=== PATIENT | female | born 1955 | race Caucasian/White ===

== ENCOUNTER 2017-05-02 13:06 | Emergency (ER) | payer BC ==
[2017-05-02 15:39] VITALS: BP 143/82
--- NOTE | 2017-05-02 16:27 | UC ---
Ear Complaint HPI - HPI Summary HPI Summary: ear pain facial pressure, subjective fever, fatigue - History of Current Complaint Chief Complaint: UCGeneralIllness Stated Complaint: SINUS INF,EAR/FACE PAIN Time Seen by Provider: 05/02/17 16:06 Hx Obtained From: Patient ?: No Onset/Duration: Gradual Onset, Lasting Days, Still Present, Worse Since - this weekend Severity Initially: Mild Severity Currently: Moderate Alleviating Factors: Nothing - Allergies/Home Medications Allergies/Adverse Reactions: Allergies Allergy/AdvReac Type Severity Reaction Status Date / Time Adhesive Tape Allergy Rash Verified 05/02/17 15:39 Bacitracin [From Neosporin] Allergy Itching Verified 05/02/17 15:39 Neomycin [From Neosporin] Allergy Itching Verified 05/02/17 15:39 Polymyxin B [From Neosporin] Allergy Itching Verified 05/02/17 15:39 PMH/Surg Hx/FS Hx/Imm Hx Previously Healthy: No Cardiovascular History: Hypertension - Surgical History Surgical History: Yes Surgery Procedure, Year, and Place: 2 c-sections, 1984, 1986, elijah hernia repair with gallbladder and tibal ligation CARPLE TUNNEL BILAT, 1996. sigmoidectomy, 09/2014, [facility] - Family History Known Family History: Positive: Hypertension - Social History Occupation: Employed Full-time Lives: With Family Alcohol Use: Weekly Alcohol Amount: 2 per week Substance Use Type: None Smoking Status (MU): Current Every Day Smoker Amount Used/How Often: pack a day for 10 years When Did the Patient Quit Smoking/Using Tobacco: 5 days ago Household Exposure Type: Cigarettes Review of Systems Constitutional: Fever - subjective, Chills, Fatigue Skin: Negative Eyes: Negative ENT: Sore Throat, Ear Ache, Sinus Congestion, Sinus Pain/Tenderness Respiratory: Negative Cardiovascular: Negative Gastrointestinal: Negative Genitourinary: Negative Motor: Negative Neurovascular: Negative Musculoskeletal: Negative Neurological: Headache Psychological: Negative All Other Systems Reviewed And Are Negative: Yes Physical Exam Triage Information Reviewed: Yes Appearance: Well-Appearing, No Pain Distress, Well-Nourished Vital Signs: Initial Vital Signs Pulse 80 05/02/17 15:34 Resp 18 05/02/17 15:34 BP 143/82 05/02/17 15:34 Pulse Ox 97 05/02/17 15:34 Vital Signs Reviewed: Yes Eye Exam: Normal Eyes: Positive: Conjunctiva Clear ENT Exam: Normal ENT: Positive: Normal ENT inspection, Hearing grossly normal, Pharynx normal, Nasal congestion, TMs normal. Negative: Nasal drainage, Tonsillar swelling, Tonsillar exudate, Trismus, Muffled/hoarse voice Dental Exam: Normal Neck exam: Normal Neck: Positive: Supple, Nontender, No Lymphadenopathy Respiratory Exam: Normal Respiratory: Positive: Chest non-tender, Lungs clear, Normal breath sounds, No respiratory distress, No accessory muscle use Cardiovascular Exam: Normal Cardiovascular: Positive: RRR, No Murmur, Pulses Normal, Brisk Capillary Refill Musculoskeletal Exam: Normal Musculoskeletal: Positive: Strength Intact, ROM Intact, No Edema Neurological Exam: Normal Neurological: Positive: Alert, Muscle Tone Normal Psychological Exam: Normal Skin Exam: Normal Ear Complaint Course/Dx - Course Course Of Treatment: flonase,sudafed,augmentin, increase fluids follow with pcp - Differential Dx/Diagnosis Differential Diagnosis/HQI/PQRI: Foreign Body, Otitis Externa, Otitis Media, Trigeminal Nueralgia, URI Provider Diagnoses: serrous otitis media Discharge - Discharge Plan Condition: Stable Disposition: HOME Prescriptions: Amoxicillin/Clavulanate TAB* [Augmentin TAB 875*] 875 mg PO BID #20 tab Fluticasone NASAL SPRAY 50MCG* [Flonase NASAL SPRAY 50MCG*] 2 spray BOTH NARES DAILY #1 btl Patient Education Materials: DASH Eating Plan (ED), Hypertension (ED), Serous Otitis Media (ED) Referrals: Mel Chairez MD [Primary Care Provider] - 1 Week
== END 2017-05-02 17:13 | disposition home or self-care (01) ==
LOC: UCEAST 13:06
DX: H65.90 Unspecified nonsuppurative otitis media, unspecified ear (principal); I10 Essential (primary) hypertension; Z88.3 Allergy status to other anti-infective agents; F17.210 Nicotine dependence, cigarettes, uncomplicated
CPT/HCPCS: 99211; G0463

== ENCOUNTER 2018-01-12 08:57 | Day surgery (SDC) | payer BC ==
[~2018-01-12 08:57] MED LIST: Buffered Lidocaine 0.9% SYRIN* 5 ML/SYR SYRINGE INTRADERM ONE; Famotidine IV* 10 MG/ML 2 ML (20 mg) IV ONE
[2018-01-12] MEDS ORDERED: ceFAZolin 2 GM PREMIX (*) 2 GM/50 ML BAG IVPB ONE (09:20)
[2018-01-12] MEDS ORDERED: Famotidine IV* 10 MG/ML 2 ML (20 mg) ONE (09:24)
[2018-01-12] MEDS ORDERED: fentaNYL* 50 MCG/ML 2 ML VIAL (100 MCG VIAL) ONE (09:40)
[2018-01-12] MEDS ORDERED: Midazolam* 1 MG/ML 5 ML VIAL (5 MG) ONE (09:40)
[2018-01-12] MEDS ORDERED: Bupivacaine 0.5% SDV PF* 10-30ML VIAL ONE (10:12)
[2018-01-12] MEDS ORDERED: Lidocaine 1% INJ* 10 MG/ML 30 ML SDV ONE (10:12)
[2018-01-12] MEDS ORDERED: Ondansetron INJ* 2 MG/ML VIAL ONE (10:54)
[2018-01-12] MEDS ORDERED: Propofol* 10 MG/ML 20 ML BTL IV PUSH ONE ×2 (10:54→11:14)
[2018-01-12] MEDS ORDERED: Ketorolac INJ* 30 MG/ML 1 ML VIAL ONE (10:54)
[2018-01-12] MEDS ORDERED: Lidocaine 2% PF * 5 ML VIAL ONE (10:54)
[2018-01-12] MEDS ORDERED: Dexamethasone IV* 4 MG/ML 1 ML (4 MG) ONE ×2 (11:11→11:15)
[2018-01-12] MEDS ORDERED: Acetaminophen TAB* 325 MG PO PRN (11:30)
[2018-01-12] MEDS ORDERED: Naloxone* 0.4 MG/ML 1 ML VIAL IV PRN (11:30)
[2018-01-12] MEDS ORDERED: DiMENhydriNATE IV* 50 MG/ML VIAL IV PUSH PRN (11:30)
[2018-01-12 11:49] VITALS: BP 127/75
--- NOTE | 2018-01-13 01:32 | OP ---
DATE OF OPERATION: 01/12/18 - [facility] DATE OF : 55 SURGEON: Jayson Luu DPM ANESTHESIA: MAC with local. PRE-OP DIAGNOSIS: Painful screw hardware x2 in the first metatarsal of the left foot. POST-OP DIAGNOSIS: Painful screw hardware x2 in the first metatarsal of the left foot. OPERATIVE PROCEDURE: Removal of two screws from the first metatarsal, left foot. PATHOLOGY: The removed hardware. HEMOSTASIS: Pneumatic ankle tourniquet. ESTIMATED BLOOD LOSS: Less than 10 cc. INDICATIONS: The patient with prior bunionectomy with his metatarsal osteotomy with screw fixation. The osteotomy is well healed. More recently, she developed some irritation around the screw head causing some neuritis and pain when wearing shoes. She opts for surgery at this time to remove the two screws from the first metatarsal. DESCRIPTION OF PROCEDURE: The patient was brought to the operating room, placed on the operating room table in supine position. The anesthesia department administered IV sedation and peripheral nerve blocks performed about the left forefoot with a 1:1 mixture of 1% lidocaine plain and 0.5% Marcaine plain. Left foot was then prepped and draped in the usual fashion. Next, an Esmarch bandage was utilized to exsanguinate the left foot and pneumatic ankle tourniquet was inflated to 250 mmHg above a well-padded left ankle. Attention was directed to the dorsal aspect of the first metatarsal where the C-arm was used previously to zayda the screw heads. Using the previous surgical incision, a linear incision was made. The incision was deepened to subcutaneous tissues with care being taken to retract neurovascular structures and cauterize superficial bleeders as needed. Dissection was carried down to the fascia with more proximal screws identified. The periosteal tissues were incised and soft tissue and small amount of bony overgrowth was freed from the screw head and using the ERNex screw lumber driver, the screw was retrograded out of the first metatarsal. The area was inspected. There was no significant bony hypertrophy in this area. Dissection was carried further distally identifying the more distal screw. The periosteum was incised and the fibers and soft tissue as well as some bony overgrowth was removed from the margins of the screw head and using the screw lumber driver, screw was retrograded out of the first metatarsal. Both screws were found to be intact. No signs of breakage or shearing. Again, both areas were inspected with no bony hypertrophy warranting any rasping. The surgical site was flushed with copious amounts of normal sterile saline. The periosteum was reapproximated and secured with 4-0 Vicryl, subcutaneous tissues were reapproximated with 4-0 Vicryl and the skin was reapproximated with 5-0 nylon. Dexamethasone phosphate was infiltrated about the surgical sites and the incisions were dressed with Xeroform gauze and a light sterile compressive dressing consisting of 4x4 gauze, Rudy, and light Coban wrap. The pneumatic ankle tourniquet was deflated about the left ankle and a prompt hyperemic response was noted in about all 5 digits of the patient's left foot. Having appeared to tolerate the procedures and anesthesia well, the patient was transported via cart from the operating room to Recovery in satisfactory condition with cap refill less than 3 seconds to all digits of the left foot. [id number]/CPS #: [id number] MTDD
== END 2018-01-12 12:07 | disposition home or self-care (01) ==
LOC: OREAST 08:57
PROVIDERS: ATTEND Podiatrist Foot Surgery
DX: T84.84XA Pain due to internal orthopedic prosthetic devices, implants and grafts, initial encounter (principal); I10 Essential (primary) hypertension; E78.00 Pure hypercholesterolemia, unspecified; K21.9 Gastro-esophageal reflux disease without esophagitis; E78.5 Hyperlipidemia, unspecified; R06.02 Shortness of breath; F17.210 Nicotine dependence, cigarettes, uncomplicated; Z88.8 Allergy status to other drugs, medicaments and biological substances
CPT/HCPCS: 88300; J0690; J1100; J1885; J2250; J2405; J2704; J3010

== ENCOUNTER 2018-04-06 15:11 | Inpatient (IN) | payer BC ==
[2018-04-06] MEDS ORDERED: cefTRIAXone(*) 1 GM in NS 0.9% 50 ML* 50 ML IVPB ONE (15:29)
[2018-04-06] MEDS ORDERED: NS 0.9% 1000 ML* 2,000 ML IV ONE (15:29)
[2018-04-06 15:49] LABS: ABS Basophils 0.1 10^3/ul (0-0.2); ABS Eosinophils 0 10^3/ul (0-0.6); ABS Lymphocytes 0.9 10^3/ul (1.0-4.8); ABS Monocytes 0.5 10^3/ul (0-0.8); ABS Neutrophils 6.1 10^3/ul (1.5-7.7); ABS Nucleated RBC 0 10^3/ul; Eosinophil % 0 % (0-6); Hematocrit 41 % (35-47); Hemoglobin 13.6 g/dl (12.0-16.0); Lymphocyte % 11.9 % (25-47); Mean Corpuscular HGB Conc 34 g/dl (31-36); Mean Corpuscular Hemoglobin 28 pg (27-31); Mean Corpuscular Volume 83 fL (80-97); Nucleated Red Blood Cells % 0.2; Platelet Count 167 10^3/ul (150-450); Red Blood Count 4.87 10^6/ul (4.00-5.40); Red Cell Distribution Width 15 % (10.5-15); White Blood Count 7.5 10^3/ul (3.5-10.8)
[2018-04-06 16:19] LABS: Urine Appearance Cloudy; Urine Blood 2+ (Negative); Urine Color Yellow; Urine Ketones Negative (Negative); Urine Protein 2+(100 mg/dL) (Negative); Urine Red Blood Cell 2+(6-10/hpf) (Absent); Urine Specific Gravity 1.017 (1.010-1.030); Urine Urobilinogen Negative (Negative); Urine White Blood Cell Absent (Absent)
--- NOTE | 2018-04-06 16:31 | RAD ---
INDICATION: Fever. COMPARISON: Comparison is made with a prior chest x-ray study from May 18, 2016. TECHNIQUE: A portable view of the chest was obtained. FINDINGS: Cardiac and mediastinal contours appear to be within normal limits. The lungs are clear. No pleural effusion is seen. IMPRESSION: NO EVIDENCE FOR ACUTE DISEASE.
[2018-04-06] MEDS ORDERED: Aspirin 81 mg CHEW TAB* 81 MG TAB.CHEW PO ONE (16:35)
--- NOTE | 2018-04-06 16:44 | RAD ---
INDICATION: Headache. COMPARISON: Comparison is made with a prior MRI of the brain from October 28, 2006. TECHNIQUE: Contiguous axial sections of the brain were obtained from the skull base to the vertex without contrast. FINDINGS: There is a cavum septum pellucidum consistent with normal variation. The ventricle cisterns and sulci are otherwise unremarkable. No significant focal abnormality or mass effect is seen. There is no evidence for hemorrhage. No significant focal osseous abnormality is seen. The visualized portion of the paranasal sinuses and mastoid air cells appear clear. IMPRESSION: NO EVIDENCE FOR ACUTE INTRACRANIAL ABNORMALITY.
[2018-04-06 16:55] LABS: INR 1.1 (0.77-1.02)
[2018-04-06] MEDS ORDERED: Ketorolac INJ* 30 MG/ML 1 ML VIAL IV PUSH ONE (17:12)
--- NOTE | 2018-04-06 18:19 | ED ---
Romero Cooper Stephanie, scribed for Rayray Thorpe MD on 04/06/18 at 1535 . HPI Febrile Illness - HPI Summary HPI Summary: The pt is a 62 y/o F presenting to the ED with c/o fever that began on 04/03/18. Symptoms include chills and diaphoresis. She denies dysuria, neck pain and photophobia. The pt reports she usually has a cough with phlegm due to being a smoker. - History of Current Complaint Chief Complaint: EDFever Time Seen by Provider: 04/06/18 15:23 Hx Obtained From: Patient Onset/Duration: Started Days Ago - 2, Still Present Timing: Constant Current Severity: Moderate Pain Intensity: 0 Pain Scale Used: 0-10 Numeric Aggravating Factors: Nothing Alleviating Factors: Nothing Associated Signs and Symptoms: Chills, Cough - chronic, Diaphoresis - Allergy/Home Medications Allergies/Adverse Reactions: Allergies Allergy/AdvReac Type Severity Reaction Status Date / Time Adhesive Tape Allergy Rash Verified 01/12/18 09:27 bacitracin Allergy Itching Verified 01/12/18 09:27 [From Neosporin ([id number])] neomycin Allergy Itching Verified 01/12/18 09:27 [From Neosporin ([id number])] polymyxin B Allergy Itching Verified 01/12/18 09:27 [From Neosporin ([id number])] Home Medications: Home Medications Lisinopril TAB* [Prinivil TAB*] 40 mg PO DAILY 04/06/18 [History Confirmed 04/06] Tiotropium CAP.INH* [Spiriva CAP.INH*] 1 cap.inh INH DAILY 04/06/18 [History Confirmed 04/06/18] amLODIPine TAB* [Norvasc 5 mg TAB*] 5 mg PO DAILY 04/06/18 [History Confirmed ] PMH/Surg Hx/FS Hx/Imm Hx Endocrine/Hematology History: Denies: Hx Diabetes, Hx Thyroid Disease Cardiovascular History: Reports: Hx Hypertension - ON MEDICATION FOR Denies: Hx Congestive Heart Failure, Hx Pacemaker/ICD, Other Cardiovascular Problems/Disorders Respiratory History: Denies: Hx Asthma, Hx Chronic Obstructive Pulmonary Disease (COPD), Other Respiratory Problems/Disorders GI History: Reports: Hx Gastroesophageal Reflux Disease - OCCASIONALLY-PRN PREVACID, Other GI Disorders - HX OF DIVERTICULITIS Denies: Hx Ulcer Musculoskeletal History: Reports: Hx Arthritis - thumbs and shoulders and hip Sensory History: Reports: Hx Contacts or Glasses - reading glasses Denies: Hx Hearing Aid Opthamlomology History: Reports: Hx Contacts or Glasses - reading glasses Neurological History: Denies: Other Neuro Impairments/Disorders - Surgical History Surgery Procedure, Year, and Place: 2 c-sections, 1984, 1986, elijah hernia repair with gallbladder and tibal ligation CARPLE TUNNEL BILAT, 1996. sigmoidectomy, 09/2014, [facility]. 2017-COLPOSCOPY AND LOOP BIOPSY. 2004- BUNIONECTOMY LEFT FOOT Hx Anesthesia Reactions: Yes - SIGMOIDECTOMY-NAUSEA AND VOMITING Infectious Disease History: No Infectious Disease History: Denies: Hx Clostridium Difficile, Hx Hepatitis, Hx Human Immunodeficiency Virus (HIV), Hx Shingles, Hx Tuberculosis, Hx Known/Suspected VRE, Hx Known/ Suspected VRSA, History Other Infectious Disease, Traveled Outside the [place] in Last 30 Days - Family History Known Family History: Positive: Hypertension - Social History Occupation: Employed Part-time Lives: With Family Alcohol Use: Weekly Alcohol Amount: 2 per week Hx Substance Use: No Substance Use Type: Reports: None Hx Tobacco Use: Yes Smoking Status (MU): Heavy Every Day Tobacco Smoker Amount Used/How Often: 1 PPD X 14 YEARS AGO Review of Systems Positive: Fever, Chills, Skin Diaphoresis Negative: Photophobia Negative: dysuria Musculoskeletal: Negative - neck pain Negative: Slurred Speech All Other Systems Reviewed And Are Negative: Yes Physical Exam - Summary Physical Exam Summary: VITAL SIGNS: Reviewed. GENERAL: Patient is a well-developed and nourished FEMALE who is lying comfortable in the stretcher. Patient is not in any acute respiratory distress. HEAD AND FACE: No signs of trauma. No ecchymosis, hematomas or skull depressions. No sinus tenderness. EYES: PERRLA, EOMI x 2, No injected conjunctiva, no nystagmus. EARS: Hearing grossly intact. Ear canals and tympanic membranes are within normal limits. MOUTH: Oropharynx within normal limits. NECK: Supple, trachea is midline, no adenopathy, no JVD, no carotid bruit, no c- spine tenderness, neck with full ROM. CHEST: Symmetric, no tenderness at palpation LUNGS: Crackles in bases of lungs CVS: Regular rate and rhythm, S1 and S2 present, no murmurs or gallops appreciated. ABDOMEN: Soft, non-tender. No signs of distention. No rebound no guarding, and no masses palpated. Bowel sounds are normal. EXTREMITIES: FROM in all major joints, no edema, no cyanosis or clubbing. NEURO: Alert and oriented x 3. No acute neurological deficits. Speech is normal and follows commands. SKIN: Dry and warm Triage Information Reviewed: Yes Vital Signs On Initial Exam: Initial Vitals Temp Pulse Resp BP Pulse Ox 102.8 F 96 22 108/68 94 04/06/18 15:11 04/06/18 15:11 04/06/18 15:11 04/06/18 15:11 04/06/18 15:11 Vital Signs Reviewed: Yes Diagnostics - Vital Signs Vital Signs Temp Pulse Resp BP Pulse Ox 04/06/18 15:11 102.8 F 96 22 108/68 94 - Laboratory Lab Results: Lab Results 04/06/18 04/06/18 04/06/18 Range/Units 15:34 15:34 15:34 WBC 7.5 (3.5-10.8) 10^3/ul RBC 4.87 (4.00-5.40) 10^6/ul Hgb 13.6 (12.0-16.0) g/dl Hct 41 (35-47) % MCV 83 (80-97) fL MCH 28 (27-31) pg MCHC 34 (31-36) g/dl RDW 15 (10.5-15) % Plt Count 167 (150-450) 10^3/ul MPV 10.0 (7.4-10.4) um3 Neut % (Auto) 81.0 (38-83) % Lymph % (Auto) 11.9 L (25-47) % [place] % (Auto) 6.4 (0-7) % Eos % (Auto) 0 (0-6) % Baso % (Auto) 0.7 (0-2) % Absolute Neuts (auto) 6.1 (1.5-7.7) 10^3/ul Absolute Lymphs (auto) 0.9 L (1.0-4.8) 10^3/ul Absolute Monos (auto) 0.5 (0-0.8) 10^3/ul Absolute Eos (auto) 0 (0-0.6) 10^3/ul Absolute Basos (auto) 0.1 (0-0.2) 10^3/ul Absolute Nucleated RBC 0 10^3/ul Nucleated RBC % 0.2 ESR Pending INR (Anticoag Therapy) 1.10 H (0.77-1.02) APTT 30.0 (26.0-36.3) seconds Fibrinogen 441.6 H (110.8-404.3) mg/dL Sodium (135-145) mmol/L Potassium (3.5-5.0) mmol/L Chloride (101-111) mmol/L Carbon Dioxide (22-32) mmol/L Anion Gap (2-11) mmol/L BUN (6-24) mg/dL Creatinine (0.51-0.95) mg/dL Est GFR ( Amer) (>60) Est GFR (Non-Af Amer) (>60) BUN/Creatinine Ratio (8-20) Glucose (70-100) mg/dL Lactic Acid (0.5-2.0) mmol/L Calcium (8.6-10.3) mg/dL Total Bilirubin (0.2-1.0) mg/dL AST (13-39) U/L ALT (7-52) U/L Alkaline Phosphatase (34-104) U/L Total Creatine Kinase (10-223) U/L Troponin I (<0.04) ng/mL C-Reactive Protein (< 5.00) mg/L B-Natriuretic Peptide ( - 100) pg/mL Total Protein (6.4-8.9) g/dL Albumin (3.2-5.2) g/dL Globulin (2-4) g/dL Albumin/Globulin Ratio (1-3) Procalcitonin (<0.6) ng/mL Urine Color Yellow Urine Appearance Cloudy Urine pH 5.0 (5-9) Ur Specific [place] 1.017 (1.010-1.030) Urine Protein 2+(100 mg/dl) A (Negative) Urine Ketones Negative (Negative) Urine Blood 2+ A (Negative) Urine Nitrate Negative (Negative) Urine Bilirubin Negative (Negative) Urine Urobilinogen Negative (Negative) Ur Leukocyte Esterase Negative (Negative) Urine WBC (Auto) Absent (Absent) Urine RBC (Auto) 2+(6-10/hpf) A (Absent) Ur Squamous Epith Cells Present A (Absent) Urine Bacteria Absent (Absent) Urine Glucose Negative (Negative) Influenza A (Rapid) (Negative) Influenza B (Rapid) (Negative) 04/06/18 04/06/18 04/06/18 Range/Units 15:34 15:34 15:34 WBC (3.5-10.8) 10^3/ul RBC (4.00-5.40) 10^6/ul Hgb (12.0-16.0) g/dl Hct (35-47) % MCV (80-97) fL MCH (27-31) pg MCHC (31-36) g/dl RDW (10.5-15) % Plt Count (150-450) 10^3/ul MPV (7.4-10.4) um3 Neut % (Auto) (38-83) % Lymph % (Auto) (25-47) % [place] % (Auto) (0-7) % Eos % (Auto) (0-6) % Baso % (Auto) (0-2) % Absolute Neuts (auto) (1.5-7.7) 10^3/ul Absolute Lymphs (auto) (1.0-4.8) 10^3/ul Absolute Monos (auto) (0-0.8) 10^3/ul Absolute Eos (auto) (0-0.6) 10^3/ul Absolute Basos (auto) (0-0.2) 10^3/ul Absolute Nucleated RBC 10^3/ul Nucleated RBC % ESR INR (Anticoag Therapy) (0.77-1.02) APTT (26.0-36.3) seconds Fibrinogen (110.8-404.3) mg/dL Sodium 136 (135-145) mmol/L Potassium 3.8 (3.5-5.0) mmol/L Chloride 102 (101-111) mmol/L Carbon Dioxide 24 (22-32) mmol/L Anion Gap 10 (2-11) mmol/L BUN 10 (6-24) mg/dL Creatinine 0.87 (0.51-0.95) mg/dL Est GFR ( Amer) 84.8 (>60) Est GFR (Non-Af Amer) 66.0 (>60) BUN/Creatinine Ratio 11.5 (8-20) Glucose 116 H (70-100) mg/dL Lactic Acid 0.7 (0.5-2.0) mmol/L Calcium 9.2 (8.6-10.3) mg/dL Total Bilirubin 0.50 (0.2-1.0) mg/dL AST 33 (13-39) U/L ALT 35 (7-52) U/L Alkaline Phosphatase 82 (34-104) U/L Total Creatine Kinase 62 (10-223) U/L Troponin I 0.36 H* (<0.04) ng/mL C-Reactive Protein 112.50 H (< 5.00) mg/L B-Natriuretic Peptide 44 ( - 100) pg/mL Total Protein 6.8 (6.4-8.9) g/dL Albumin 3.9 (3.2-5.2) g/dL Globulin 2.9 (2-4) g/dL Albumin/Globulin Ratio 1.3 (1-3) Procalcitonin (<0.6) ng/mL Urine Color Urine Appearance Urine pH (5-9) Ur Specific [place] (1.010-1.030) Urine Protein (Negative) Urine Ketones (Negative) Urine Blood (Negative) Urine Nitrate (Negative) Urine Bilirubin (Negative) Urine Urobilinogen (Negative) Ur Leukocyte Esterase (Negative) Urine WBC (Auto) (Absent) Urine RBC (Auto) (Absent) Ur Squamous Epith Cells (Absent) Urine Bacteria (Absent) Urine Glucose (Negative) Influenza A (Rapid) (Negative) Influenza B (Rapid) (Negative) 04/06/18 04/06/18 Range/Units 15:34 15:55 WBC (3.5-10.8) 10^3/ul RBC (4.00-5.40) 10^6/ul Hgb (12.0-16.0) g/dl Hct (35-47) % MCV (80-97) fL MCH (27-31) pg MCHC (31-36) g/dl RDW (10.5-15) % Plt Count (150-450) 10^3/ul MPV (7.4-10.4) um3 Neut % (Auto) (38-83) % Lymph % (Auto) (25-47) % [place] % (Auto) (0-7) % Eos % (Auto) (0-6) % Baso % (Auto) (0-2) % Absolute Neuts (auto) (1.5-7.7) 10^3/ul Absolute Lymphs (auto) (1.0-4.8) 10^3/ul Absolute Monos (auto) (0-0.8) 10^3/ul Absolute Eos (auto) (0-0.6) 10^3/ul Absolute Basos (auto) (0-0.2) 10^3/ul Absolute Nucleated RBC 10^3/ul Nucleated RBC % ESR INR (Anticoag Therapy) (0.77-1.02) APTT (26.0-36.3) seconds Fibrinogen (110.8-404.3) mg/dL Sodium (135-145) mmol/L Potassium (3.5-5.0) mmol/L Chloride (101-111) mmol/L Carbon Dioxide (22-32) mmol/L Anion Gap (2-11) mmol/L BUN (6-24) mg/dL Creatinine (0.51-0.95) mg/dL Est GFR ( Amer) (>60) Est GFR (Non-Af Amer) (>60) BUN/Creatinine Ratio (8-20) Glucose (70-100) mg/dL Lactic Acid (0.5-2.0) mmol/L Calcium (8.6-10.3) mg/dL Total Bilirubin (0.2-1.0) mg/dL AST (13-39) U/L ALT (7-52) U/L Alkaline Phosphatase (34-104) U/L Total Creatine Kinase (10-223) U/L Troponin I (<0.04) ng/mL C-Reactive Protein (< 5.00) mg/L B-Natriuretic Peptide ( - 100) pg/mL Total Protein (6.4-8.9) g/dL Albumin (3.2-5.2) g/dL Globulin (2-4) g/dL Albumin/Globulin Ratio (1-3) Procalcitonin 0.2 (<0.6) ng/mL Urine Color Urine Appearance Urine pH (5-9) Ur Specific [place] (1.010-1.030) Urine Protein (Negative) Urine Ketones (Negative) Urine Blood (Negative) Urine Nitrate (Negative) Urine Bilirubin (Negative) Urine Urobilinogen (Negative) Ur Leukocyte Esterase (Negative) Urine WBC (Auto) (Absent) Urine RBC (Auto) (Absent) Ur Squamous Epith Cells (Absent) Urine Bacteria (Absent) Urine Glucose (Negative) Influenza A (Rapid) Negative (Negative) Influenza B (Rapid) Negative (Negative) Result Diagrams: 04/06/18 15:34 04/06/18 15:34 Lab Statement: Any lab studies that have been ordered have been reviewed, and results considered in the medical decision making process. - Radiology CXR Xray Interpretation: No Acute Changes Radiology Interpretation Completed By: Radiologist - NO EVIDENCE FOR ACUTE DISEASE. ED physician has reviewed this report. - CT Brain CT Interpretation: No Acute Changes CT Interpretation Completed By: Radiologist - NO EVIDENCE FOR ACUTE INTRACRANIAL ABNORMALITY. ED physician has reviewed this report. - EKG 15:39 Cardiac Rate: NL EKG Rhythm: Sinus Rhythm - [address] Segment: Normal EKG Interpretation: no ST elevations Re-Evaluation - Re-Evaluation First Eval Re-Evaluation Time: 18:08 Change: Improved - The pt states she feels better. ED physician discussed plan of admission with the pt and the pt understands and agrees. Course/Dx - Course Assessment/Plan: Blood test results without any significant abnormality except for fibrinogen of 441.6 and troponin was 0.36. His CRP is 112. Urinalysis is negative for UTI and [place] influenza A and B is negative. Chest x-ray shows no acute pathology. Head CT is negative for acute pathology. In the course the patient was given IV fluids, and Rocephin as opposed spectrum antibiotics and the patient was flagged positive for SIRS. Because of increased when the patient was given aspirin. The patient denies any chest pain denies any headache denies any other complaint. I discuss my physical exam, findings and test results with Dr. Erazo from the hospitalist services and he agrees to admit patient to his services. Patient is hemodynamically stable alert and oriented x 3. - Diagnoses Provider Diagnoses: Elevated troponin, Fever - Provider Notifications Discussed Care Of Patient With: Ta Erazo Time Discussed With Above Provider: 17:54 Instructed by Provider To: Admit As Inpatient Discharge - Sign-Out/Discharge Documenting (check all that apply): Discharge/Admit/Transfer - Admit - Discharge Plan Condition: Stable Disposition: ADMITTED TO [facility] Referrals: Mel Chairez MD [Primary Care Provider] - - Billing Disposition and Condition Condition: STABLE Disposition: Admitted to [facility] The documentation as recorded by the Romero iraheta Stephanie accurately reflects the service I personally performed and the decisions made by Maurilio avilez Walter, MD.
--- NOTE | 2018-04-06 21:18 | HP ---
CC: Dr. Mel Chairez* HISTORY AND PHYSICAL: DATE OF ADMISSION: 04/06/18 PRIMARY CARE PROVIDER: Dr. Mel Chairez. ATTENDING PHYSICIAN: Dr. Ta Erazo * (dictated by Sherrie Carpenter NP). CHIEF COMPLAINT: Fevers and chills with associated body aches. HISTORY OF PRESENT ILLNESS: Ms. Cervantes is a 62-year-old female with past medical history significant for GERD, hyperlipidemia, degenerative joint disease , chronic sinusitis, diverticulosis, hypertension, history of persistent vertigo who states that she has been having flu-like symptoms since Tuesday. The patient reports fevers and chills with associated body aches since Tuesday. She denies any chest pain. She occasionally has a cough, but it contributes this to her smoking history. She denies any shortness of breath. She had some vomiting this morning. She denies diarrhea, abdominal pain, dysuria, urinary urgency or frequency. She denies sore throat. She denies any sick contacts. She reports always having postnasal drip and sinus congestion and reports this is at her baseline and denies any sinus pain. She reports a poor appetite, but has been drinking fluids and eating toast. Due to her persistent fever, she presented to her primary care office for revaluation. At home today, she had a fever of 102.4 and at her PCP's office her temperature was 105. They gave her acetaminophen and called EMS. Upon recheck at EMS arrival, her temperature was 104.1. The patient was brought to the emergency room. While in the emergency room, her initial temperature was 102.8 after she received no further medications for her fever and her fever resolved after a dose of IV Toradol and her temperature was 98.9. She also had labs drawn with no leukocytosis. Troponin was 0.36, CRP 112.5, procalcitonin 0.2. She was influenza A and B negative. She had a urinalysis that was positive for protein 2+, blood 2+, rbc's 2+, squamous epithelial cells present. She had an EKG showing a normal sinus rhythm. No acute ischemia. She had a chest x-ray without acute findings. A brain CT without acute findings. She received Toradol 2 L of normal saline. The hospitalists were asked to evaluate the patient for admission. PAST MEDICAL HISTORY: 1. GERD. 2. Hyperlipidemia. 3. Degenerative joint disease. 4. Chronic sinusitis. 5. Diverticulosis. 6. Hypertension. 7. History of persistent vertigo. PAST SURGICAL HISTORY: 1. Status post section x2. 2. Status post cholecystectomy. 3. Status post tubal ligation. 4. Status post hernia repair. 5. Status post sigmoidectomy. 6. Status post bilateral carpal tunnel release. 7. Status post foot surgery. HOME MEDICATIONS: Include: 1. Spiriva 1 capsule inhalation daily. 2. Flonase 2 sprays to both nares daily. 3. Ibuprofen 600 to 800 mg oral daily as needed for fever or pain. 4. Lisinopril 40 mg oral daily. 5. Amlodipine 5 mg oral daily. ALLERGIES: ADHESIVE TAPE, NEOSPORIN, and CRESTOR. FAMILY HISTORY: The patient's mother and father and maternal family have a history of coronary artery disease. The patient's paternal grandmother had a history of diabetes. She denies any family history of cancer. The patient is a current 1-pack a day smoker. She has a total of approximately a 30 year smoking history. She did have a period of time that she had quit and has been smoking again for at least 10 years. She occasionally drinks alcohol. Denies recreational drugs. Her daughter Katelyn Cervantes will be her surrogate decision maker in the event she is unable to make decisions for herself. REVIEW OF SYSTEMS: I performed an 11-point review of systems, all the pertinent positives and negatives are mentioned in the history of present illness. The remaining review of systems are negative. PHYSICAL EXAMINATION GENERAL APPEARANCE: The patient is alert, pleasant, and appears to be in no acute distress. VITAL SIGNS: Temperature 98.9, heart rate 84, respiratory rate 14, O2 sat 95% on room air, blood pressure 142/73. HEENT: Normocephalic, atraumatic. Pupils are equal and reactive to light. Extraocular movements are intact. RESPIRATORY: There is no accessory muscle use. The lungs are clear to auscultation bilaterally. CARDIOVASCULAR: Regular rate and rhythm. S1 and S2 present. There are no murmurs, rubs, or gallops heard. ABDOMEN: Soft, nontender, and nondistended. There are bowel sounds present x4. EXTREMITIES: There is no lower extremity edema. DP and PT pulses are 2+ and symmetric. MUSCULOSKELETAL: There is no clubbing or cyanosis noted. The patient exhibits good strength in all extremities. NEUROLOGICAL: The patient is alert and oriented x4. Cranial nerves II through XII are grossly intact. PSYCHOLOGICAL: The patient is calm and cooperative. SKIN: There are no rashes or abnormalities seen. DIAGNOSTIC STUDIES/LAB DATA: Sodium 136, potassium 3.8, chloride 102, CO2 24, BUN 10, creatinine 0.87, glucose 116. White blood cell count 7.5, hemoglobin 13.6, hematocrit 41, and platelet count 167. Troponin 0.36, CRP 112.5, procalcitonin 0.2. Influenza A and B negative. Urinalysis significant for protein 2+, blood 2+, rbc's 2+, squamous epithelial cells present. EKG shows a sinus rhythm and a rate of 89. There is slight ST depression in lead V4. There are no acute signs of ischemia. This EKG is similar to previous from 05/18/16 and 03/31/11. Chest x-ray from today. Radiologist's impression: No evidence for acute disease. Brain CT from today. Radiologist's impression: No evidence for acute intracranial abnormality. IMPRESSION: Ms. Cervantes is a 62-year-old female with past medical history significant for gastroesophageal reflux disease, hyperlipidemia, degenerative joint disease, chronic sinusitis, diverticulosis, status post sigmoidectomy, hypertension and persistent vertigo, who presents to the emergency room from her primary care provider's office with fever. She will be admitted as an inpatient for fever and elevated troponin. ASSESSMENT/PLAN: 1. Fever. The patient's fever has resolved with IV Toradol. I suspect this is likely viral in nature. She is influenza negative. Her urinalysis is unremarkable. Her chest x-ray shows no acute process. She has no leukocytosis. She does have a CRP of 112.5. No rashes seen. She did receive a dose of ceftriaxone in the emergency room and had blood cultures drawn. For now , I am going to hold on any further antibiotics to give her IV fluids. I suspect this is likely viral in nature and represents a viral syndrome. She is meeting SIRS criteria with fever and tachypnea. 2. Elevated troponin. The patient denies any chest pain. Her initial troponin is 0.36. She is due now for repeat troponin. If her troponin continues to be elevated, I will call Cardiology for consult, plan for transthoracic echocardiogram in the morning and also continue to trend her troponins. Recheck an EKG in the morning. Monitor her on telemetry. She has a NADEEM score of 2 and the differential diagnosis for this could include a viral myocarditis. We will check fasting lipids in the morning. I will continue her on aspirin. I suspect her elevated troponin is secondary to demand ischemia. 3. Hypertension. The patient is currently normotensive. We will continue her on her home lisinopril and amlodipine. 4. Hyperlipidemia. The patient is not currently on a statin. We will check fasting lipids in the morning and if needed start her on medication. 5. Fluids, electrolytes, and nutrition. The patient will be on a heart- healthy diet. 6. Code status. Full code. 7. DVT prophylaxis. The patient is at high risk. She will be placed on subcu heparin. 8. Disposition. Inpatient. TIME SPENT: Time for this admission was approximately 60 minutes, greater than half of that was spent [id number] with the patient, discussing medications, past medical history, the events leading up to her arrival today, performing a physical examination. The case has been reviewed with the attending, Dr. Erazo, who agrees with the plan of care. Reviewed by DELFINA VILLEDA 04/27/18 1424 [id number]/[facility] #: [id number] RUBÉN
[2018-04-06] MEDS: Heparin VIAL(*) 5000 UNITS/ML VIAL (FIVE THOUSAND) SUBCUT SCH (22:07)
[2018-04-06] MEDS: NS 0.9% 1000 ML* 1,000 ML IV SCH (22:08)
[2018-04-06] MEDS: Acetaminophen TAB* 325 MG PO PRN (23:42)
[2018-04-07 05:36] LABS: Hematocrit 38 % (35-47); Hemoglobin 12.4 g/dl (12.0-16.0); Mean Corpuscular HGB Conc 33 g/dl (31-36); Mean Corpuscular Hemoglobin 28 pg (27-31); Mean Corpuscular Volume 84 fL (80-97); Mean Platelet Volume 9.8 um3 (7.4-10.4); Platelet Count 143 10^3/ul (150-450); Red Blood Count 4.49 10^6/ul (4.00-5.40); Red Cell Distribution Width 15 % (10.5-15); White Blood Count 6.3 10^3/ul (3.5-10.8)
[2018-04-07 05:37] LABS: ABS Basophils 0 10^3/ul (0-0.2); ABS Eosinophils 0 10^3/ul (0-0.6); ABS Lymphocytes 0.8 10^3/ul (1.0-4.8); ABS Monocytes 0.6 10^3/ul (0-0.8); ABS Neutrophils 4.9 10^3/ul (1.5-7.7); ABS Nucleated RBC 0 10^3/ul
[2018-04-07] MEDS: Heparin VIAL(*) 5000 UNITS/ML VIAL (FIVE THOUSAND) SUBCUT SCH ×3 (05:45→21:02)
[2018-04-07] MEDS: Acetaminophen TAB* 325 MG PO PRN (05:45)
[2018-04-07 06:06] LABS: ABS Basophils 0 10^3/ul (0-0.2); ABS Neutrophils 3.5 10^3/ul (1.5-7.7); Monocytes % 11 % (0-7)
[2018-04-07] MEDS ORDERED: Levofloxacin 750 MG IVPREMIX(* 750 MG/150 ML BAG IVPB SCH (08:00)
[2018-04-07] MEDS: Tiotropium CAP.INH* CAP.INH/18 MCG (USE ORDER SET !) INH SCH (08:40)
[2018-04-07] MEDS ORDERED: Tiotropium CAP.INH* CAP.INH/18 MCG (USE ORDER SET !) INH SCH (09:00)
[2018-04-07] MEDS ORDERED: Spiriva Inhaler DEVICE* 1 EACH DEVICE INH ONE (09:00)
[2018-04-07] MEDS: Aspirin EC TAB* 81 MG TAB.EC PO SCH (09:01)
[2018-04-07] MEDS: amLODIPine TAB* 5 MG PO SCH (09:01)
[2018-04-07] MEDS: Lisinopril TAB* 10 MG PO SCH (09:01)
--- NOTE | 2018-04-07 10:33 | ECHO ---
Amended Report Patient: AGNES LYNCH [facility] Rec#: [id number] : 1955 Date: 04/07/2018 Age: 62y Height: 162.6 cm / 64.0 in Weight: 103.4 kg / 227.9 lbs Sex: F BSA: 2.1 Room#: [facility] Admit Date#: 04/06/2018 Type: Inpatient Referring: Sherrie Butler NP Reading: Aleksandr Sharma MD Mill Tender Second Operator: Gloria Her RN RDCS Mill Tender Second Operator: USR CC: Mel Chairez MD Transthoracic Echocardiogram Indication: Elevated troponin level, fever BP: 135/59 HR: 79 Rhythm: NSR with PACs Findings History: HTN, HLD, GERD, persistent vertigo, smoker, obesity Technical Comments: The study quality is fair. The study is technically limited due to patient body habitus. The study is technically limited due to the patient's smoking history. Completed at 0905. Left Ventricle: The left ventricular chamber size is normal. Mild concentric left ventricular hypertrophy is observed. There are multiple regional wall motion abnormalities. There is mildly decreased left ventricular systolic function.Subtle relative hypokinesis of the inferior and posterior segments in the apical views. The specificity of thesse findings may be reduced due to the suboptimal imaging. The estimated ejection fraction is 40-45%. Normal left ventricular diastolic filling is observed. The mid inferolateral, mid inferior, apical lateral, and apical inferior wall segments are hypokinetic (score 2). Overall wallmotion score index is 1.25 Left Atrium: The left atrial chamber size is normal. Right Ventricle: The right ventricular cavity size is normal. The right ventricular global systolic function is low normal. Right Atrium: The right atrial cavity size is normal. Aortic Valve: The aortic valve is trileaflet. The aortic valve leaflets are mildly thickened. There is evidence of aortic sclerosis without stenosis. There is no evidence of aortic regurgitation. Mitral Valve: The mitral valve leaflets are mildly thickened. There is a trace of mitral regurgitation. There is no evidence of mitral stenosis. Tricuspid Valve: The tricuspid valve leaflets are normal. There is trace tricuspid regurgitation. Unable to estimate the right ventricular systolic pressure. There is no tricuspid stenosis. Pulmonic Valve: The pulmonic valve appears normal. There is a trace pulmonic regurgitation. There is no pulmonic stenosis. Pericardium: There is no significant pericardial effusion. A pericardial fat pad is visualized. Aorta: There is no dilatation of the ascending aorta. There is no dilatation of the aortic arch. There is no dilation of the aortic root. Pulmonary Artery: The main pulmonary artery is not well visualized. Venous: The inferior vena cava appears normal in size. There is a greater than 50% respiratory change in the inferior vena cava dimension. Contrast: Definity was used to optimize study. A total of 4 ml of diluted Definity was given IV to enhance endocardial border definition. Summary: There was not any prior study for comparison. Conclusions The study is technically limited due to the patient's smoking history. Mild concentric left ventricular hypertrophy is observed. There is mildly decreased left ventricular systolic function. Subtle relative hypokinesis of the inferior and posterior segments in the apical views. The specificity of thesse findings may be reduced due to the suboptimal imaging. The estimated ejection fraction is 40-45%. The right ventricular global systolic function is low normal. The aortic valve leaflets are mildly thickened. The mitral valve leaflets are mildly thickened. There is a trace of mitral regurgitation. There is trace tricuspid regurgitation. Addendum: definity contrast 4 ml used for image enhancement. The additional imaging obtained confirmed the above wall motion/LV function assessment. Measurements Name Value Normal Range RVIDd (AP) 2D 2.7 cm (0.9 - 2.6) RVDdMajor (2D) 3.3 cm (2.2 - 4.4) RVAW (2D) 0.5 cm (0.2 - 0.5) RAd ISD 4CH 4.3 cm (3.4 - 4.9) RA (A4C)W 4.4 cm (2.9 - 4.6) IVSd (2D) 1.2 cm (0.6 - 1) LVPWd (2D) 1.2 cm (0.6 - 1) LVIDd (2D) 4.5 cm (3.6 - 5.4) LVIDs (2D) 3.1 cm - LV FS (2D) 31 % (25 - 45) Aortic Annulus 1.9 cm (1.4 - 2.6) Ao root diameter (2D) 3.1 cm (2.1 - 3.5) Ascending Ao 3 cm (2.1 - 3.4) Aortic arch 2.8 cm (1.8 - 3.4) LA dimension (AP) 2D 3.3 cm (2.3 - 3.8) LAd ISD 4CH 4.5 cm (2.9 - 5.3) LA ISD 4CH W 4.5 cm (2.5 - 4.5) Name Value Normal Range LA ESV SP 4CH (A/L) 48 ml - LA ESV SP 2CH (A/L) 49 ml - LA ESV BP (A/L) 50 ml - LA ESV BP (A/L) index 24.4 ml/m2 - LA ESV SP 4CH (MOD) 43 ml - LA ESV SP 2CH (MOD) 47 ml - Name Value Normal Range MV E-wave Vmax 0.86 m/sec - MV deceleration time 266 msec - MV A-wave Vmax 0.92 m/sec - MV E:A ratio 0.93 ratio - LV septal e' Vmax 0.1 m/sec - LV lateral e' Vmax 0.08 m/sec - LV E:e' septal ratio 8.6 ratio - LV E:e' lateral ratio 10.8 ratio - Name Value Normal Range AV Vmax 1.3 m/sec - AV VTI 27.8 cm - AV peak gradient 7.2 mmHg - AV mean gradient 4.6 mmHg - LVOT Vmax 1.1 m/sec - LVOT VTI 21.3 cm - LVOT peak gradient 4.4 mmHg - LVOT mean gradient 2.8 mmHg - MEHUL Vmax 0.97 m/sec - Name Value Normal Range IVC diameter 1.9 cm - Name Value Normal Range PV Vmax 0.59 m/sec - Wallmotion BAS Normal BA Normal BAL Normal FRAN Normal BI Normal BIS Normal MAS Normal MA Normal MAL Normal MIL Hypokinetic CT Hypokinetic MIS Normal Normal AA Normal AL Hypokinetic AI Hypokinetic APEX Normal
[2018-04-07] MEDS ORDERED: Iohexol 300* (CONTRAST) 10 ML SDV IV ONE (11:40)
[2018-04-07] MEDS: Fluticasone NASAL SPRAY 50MCG* 16 gm SPRAY BTL BOTH NARES SCH (12:00)
[2018-04-07] MEDS: NS 0.9% 1000 ML* 1,000 ML IV SCH (12:47)
--- NOTE | 2018-04-07 14:50 | RAD ---
INDICATION: Fever of unknown origin COMPARISON: CT abdomen pelvis March 19, 2013 TECHNIQUE: Axial source images were obtained from the thoracic inlet to the symphysis pubis following administration of oral and intravenous contrast. 137 mL Omnipaque 300 was utilized. Coronal and sagittal reconstructed images were acquired. CHEST FINDINGS: Neck/thyroid: The visualized neck to include the thyroid appear normal. Chest wall: There are no acute abnormalities of the bony thorax or chest wall. There is no supraclavicular, infraclavicular, or axillary lymphadenopathy. Lungs : There are no pulmonary parenchymal masses or infiltrates. The pulmonary interstitium appears normal. There are no endobronchial lesions. Cardiomediastinal structures: The heart is normal in size. There is no pericardial effusion. There is no evidence of aortic aneurysm or dissection. The pulmonary vessels appear normal. There is no mediastinal or hilar adenopathy. The esophagus appears normal. Pleura : There are no pleural-based masses or effusions. ABDOMINAL/PELVIC FINDINGS: Liver: The liver is normal in size. There are no masses. There is no ductal dilatation. Gallbladder: Cholecystectomy. Spleen: The spleen is normal in size. There are no masses. Pancreas: There is no evidence of pancreatic mass or ductal dilatation. Adrenal glands: There is no evidence of adrenal mass. Kidneys: The kidneys are normal in size and position. There are prompt nephrograms and there is prompt excretion bilaterally. There are no renal parenchymal masses. There is no evidence of nephrolithiasis. Adenopathy: There is no evidence of adenopathy by size criteria. Fluid collections: There are no free or localized fluid collections. Vessels:The aorta and IVC appear normal GI tract: There are no acute CT bowel findings. There is no obstruction. The stomach and small bowel appear normal. There is apparent sigmoid resection. There is mild stenosis or there is lack of distention at the anastomotic site. There are no findings of obstruction. There are scattered diverticula of the sigmoid colon normal. Pelvic organs: The uterus and adnexa appear normal Bladder: There are no bladder masses. Abdominal and pelvic soft tissues: There is a large pannus with lower abdominal wall prolapse. Osseous structures: There are no acute osseous findings. IMPRESSION: NO ACUTE CT FINDINGS. NO MASS OR INFLAMMATORY CHANGES. POSTSURGICAL CHANGES AT THE LEVEL THE SIGMOID COLON. SCATTERED DIVERTICULA WITHOUT CT EVIDENCE OF DIVERTICULITIS
[2018-04-07] MEDS ORDERED: Perflutren Lipid Microsphere* 3 ML VIAL ONE (15:11)
--- NOTE | 2018-04-07 15:26 | PN ---
Subjective Date of Service: 04/07/18 Interval History: HOSPITALIST PROGRESS NOTE Patient seen and examined at bedside. Care reviewed and d/w Katelyn Figueroa RN. She feels a little better today. Afebrile now, denies chest pain or dyspnea. Family History: Unchanged from Admission Social History: Unchanged from Admission Past Medical History: Unchanged from Admission Objective Active Medications: Acetaminophen (Tylenol Tab*) 650 mg PO Q4H PRN PRN Reason: FEVER/PAIN Last Admin: 04/07/18 05:45 Dose: 650 mg Amlodipine Besylate (Norvasc Tab*) 5 mg PO DAILY [facility] Last Admin: 04/07/18 09:01 Dose: 5 mg Aspirin (Aspirin Ec Tab*) 81 mg PO DAILY [facility] Last Admin: 04/07/18 09:01 Dose: 81 mg Doxycycline Hyclate (Vibramycin Cap(*)) 100 mg PO BID [facility] Fluticasone Propionate (Flonase Nasal [place] 50mcg*) 2 spray BOTH NARES 1200 [facility] Last Admin: 04/07/18 12:00 Dose: 2 spray Heparin Sodium (Porcine) (Heparin Vial(*)) 5,000 units SUBCUT Q8HR [facility] Last Admin: 04/07/18 12:48 Dose: 5,000 units Sodium Chloride (Ns 0.9% 1000 Ml*) 1,000 mls @ 100 mls/hr IV PER RATE [facility] Last Admin: 04/07/18 12:47 Dose: 100 mls/hr Ibuprofen (Motrin Tab*) 600 mg PO Q6H PRN PRN Reason: Pain/fever Lisinopril (Prinivil Tab*) 40 mg PO DAILY [facility] Last Admin: 04/07/18 09:01 Dose: 40 mg Tiotropium [place] (Spiriva Cap.Inh*) 1 cap INH DAILY [facility] Last Admin: 04/07/18 08:40 Dose: 1 cap Vital Signs - 8 hr 04/07/18 04/07/18 04/07/18 07:44 08:00 08:47 Temperature 96.8 F Pulse Rate 72 85 Respiratory 12 18 16 Rate Blood Pressure 119/54 (mmHg) O2 Sat by Pulse 95 97 Oximetry 04/07/18 11:10 Temperature 97.9 F Pulse Rate 82 Respiratory 14 Rate Blood Pressure 148/69 (mmHg) O2 Sat by Pulse 97 Oximetry Oxygen Devices in Use Now: None Appearance: Pleasant lady sitting up in bed in NAD. Eyes: No Scleral Icterus Ears/Nose/Mouth/Throat: Mucous Membranes Moist Neck: Trachea Midline Respiratory: Symmetrical Chest Expansion and Respiratory Effort, Clear to Auscultation Cardiovascular: RRR - Normal S1 and S2 Abdominal: NL Sounds; No Tenderness; No Distention Skin: No Rash or Ulcers Neurological: Alert and Oriented x 3, NL Muscle Strength and Tone Result Diagrams: 04/07/18 05:28 04/06/18 15:34 Assess/Plan/Problems-Billing Assessment: Mrs. Cervantes is a 62yo F with PMH of GERD, HLD, HTN, diverticulosis, tobacco abuse, who presented to ED with fever of unclear origin. - Patient Problems (1) Fever Comment: - Source is unclear at this time. - Denies rash, urinary, GI, or respiratory complaints. - Has normal WBC, but with bandemia now, elevated ESR and CRP. - Check CT chest/abd/pelvis. - ID consult. - Continue empiric antibiotics. (2) Elevated troponin Comment: - Patient denies chest pain and EKG showed no acute ischemic changes, but echo showed EF 40-45% with subtle relative hypokinesis of the inferior and posterior segments. - Cardiology consult requested. - Continue Aspirin. (3) HTN (hypertension) Comment: - Continue Amlodipine and Lisinopril. (4) DVT prophylaxis Comment: - SQ heparin. (5) Full code status Status and Disposition: Inpatient.
[2018-04-07] MEDS ORDERED: Potassium Chloride LIQUID* 20 MEQ PACKET PO SCH (17:00)
[2018-04-07] MEDS ORDERED: Atorvastatin* 40 MG TAB PO SCH (17:00)
[2018-04-07] MEDS: Metoprolol Succinate XL TAB* 25 MG PO SCH ×2 (18:04→21:02)
[2018-04-07] MEDS: Ibuprofen TAB* 600 MG PO PRN (18:04)
[2018-04-07] MEDS: DOXYcycline CAP(*) 100 MG PO SCH (21:02)
--- NOTE | 2018-04-07 22:13 | CONS ---
CONSULTATION REPORT: DATE OF CONSULT: 04/07/18 REQUESTING PROVIDER: Dr. Perez. CONSULTING SERVICE: Infectious Disease. REASON FOR CONSULT: Fever. IMPRESSION: 1. A few days of fever, myalgia, chills, anorexia, and over the last few hours , developed round erythematous rash, posterior left leg above the knee, which is a little bit tender. Taken together, she has early localized Lyme. 2. Mildly elevated troponin and wall motion abnormality on echocardiogram. It would be atypical to see that due to Lyme infection, but still a consideration; however, she is also obese and smoker, so she is going to have further evaluation for cardiac coronary disease. 3. Obesity. RECOMMENDATIONS: Stop the Levaquin, start doxycycline 100 mg by mouth twice daily for 14 days. No need for serology. HISTORY OF PRESENT ILLNESS: This is a 62-year-old woman with obesity, admitted with fever, chills, sweats, diffuse muscle aches since Tuesday. She had a troponin of 0.3 on admission and is down to 0.13 by the third check. Her C- reactive protein was 112 yesterday. She had transthoracic echocardiogram that showed ejection fraction of 40% to 45%, hypokinesis in the inferior and posterior segments. She has had fever up to 39.4 overnight. She had a dose of ceftriaxone yesterday. Chest x-ray showed no infiltrate. CT chest, abdomen and pelvis showed no acute findings. She does not spend much time outdoors, but they have a cat which always brings ticks inside. PAST MEDICAL HISTORY: 1. Gastroesophageal reflux disease. 2. Hyperlipidemia. 3. Osteoarthritis. 4. Chronic sinusitis. 5. Diverticulosis. 6. Hypertension. 7. Vertigo. PAST SURGICAL HISTORY: 1. Status post x2. 2. Status post cholecystectomy. 3. Status post tubal ligation. 4. Status post hernia repair. 5. Status post sigmoidectomy. 6. Status post bilateral carpal tunnel release. 7. History of foot surgery. ALLERGIES: ADHESIVE TAPE, NEOSPORIN, and CRESTOR. MEDICATIONS: 1. Tylenol. 2. Amlodipine. 3. Aspirin. 4. Fluticasone nasal spray. 5. Heparin subcutaneous injection. 6. Ibuprofen as needed. 7. Lisinopril. 8. Levaquin. SOCIAL HISTORY: She lives in the area with her daughter. They have a pet cat which is an outdoor cat. No travel. She is a smoker. FAMILY HISTORY: No recurrent infections or tuberculosis. REVIEW OF SYSTEMS: All negative except as noted above to a 14-point review of systems. PHYSICAL EXAM: Vital Signs: Temperature is 36.6, heart rate 80, respiratory rate 14, blood pressure 148/69, oxygen saturation 97% on room air. In general, she is awake, not in distress. Neurologic: She is oriented x3. Follows all commands. Moves all her extremities. HEENT: There is no conjunctival hemorrhage. Oropharynx without lesions. Neck: Supple without mass. Lymph Nodes: There is no inguinal, axillary, or epitrochlear lymphadenopathy. Heart is regular rate and rhythm without murmurs, rubs, or gallops. Lungs are clear to auscultation bilaterally. Abdomen: Soft, nontender, nondistended. There are bowel sounds present. Skin: Posterior left upper leg just above the knee, there is a 4 cm erythematous patch with a couple of shades of erythema. It is mildly tender. There is no fluctuance or warmth. LABORATORY DATA: Creatinine 0.8. White blood cell count 6, hemoglobin 12, platelets 143. Influenza PCR negative. Please see impressions and recommendations outlined above, which I discussed with Dr. Perez. Thanks for asking me to see Ms. Cervantes in consultation. [id number]/[facility] #: [id number] RUBÉN
--- NOTE | 2018-04-07 23:35 | CONS ---
CC: Dr. Chairez; Dr. Aleksandr Sharma; Dr. Perez CARDIOLOGY CONSULTATION: DATE OF CONSULT: 04/06/18 PATIENT OF: Dr. Chairez. CONSULTING PHYSICIAN: Dr. Perez. REASON FOR EVALUATION: Cardiomyopathy, abnormal troponin in the setting of a febrile illness. HISTORY OF PRESENT ILLNESS: This is a very pleasant 62-year-old woman, who has a history of hypertension, who developed what she called a flu-like syndrome starting Tuesday. She has had fevers, chills, and sweats. She said she checked her temperature yesterday and it was up to 102.4. She said that she was not eating much. She did have some vomiting yesterday in the afternoon and some brief diarrhea. Because of those symptoms, she went to her doctor's office and was found to have a tympanic temperature of 104.8 and was referred to the emergency room. She received acetaminophen at the doctor's office. In the emergency room, her temperature was 102.8 and she was given IV Toradol and her fever resolved. She had a troponin; it was elevated at 0.36. CRP elevated at 112.5. Influenza tests for A and B were negative. Her EKG did not show acute changes, but there were small Qs inferiorly and minor nonspecific inferior ST-T changes, although there was some baseline wander, which may account for that. EKG did not look significantly different from 2016. Her EKG from today revealed some improvement in the inferior T-wave changes, but continued poor baseline. Of note, the lateral STs were slightly higher than 2016. She said that she has had diffuse arthralgias and myalgias and discomfort in her chest with breathing. She denied any specific anginal-type chest pain. She denies orthopnea. No palpitations. No syncope or near syncope. She said she felt fatigued. She says normally she smokes about a pack per day and has for about 40 years. She says when she was younger, she actually smoked more. She recently was started on nebulizer for a possible asthma. She says she walks about 100 feet from her car to her destination and gets short of breath. She has flight of stairs in the house and is able to go up and down the stairs. She does not exercise regularly. She said that she thinks she has been limited by dyspnea for a year or more, but has difficulty quantitating it. She said it was not always like that. She denies any previous murmurs, rheumatic fever, or heart problems. She does have a history of hypertension, tobacco use, elevated cholesterol. She denies diabetes. She is obese. There was a consultation performed by Dr. Rocha, who thinks her presentation is consistent with Lyme disease. PAST SURGICAL HISTORY: Includes C-sections x2, carpal tunnel bilaterally, left foot surgery, cholecystectomy, sigmoidectomy for diverticulitis, tubal ligation , hernia repair. MEDICATIONS: Her home medications include: 1. Spiriva. 2. Flonase. 3. Ibuprofen as needed for fever. 4. Lisinopril 40 mg a day. 5. Amlodipine 5 mg a day. Medications as an inpatient include: 1. Acetaminophen. 2. Amlodipine 5 mg a day. 3. Aspirin 81 mg a day. 4. Atorvastatin started today 40 mg. 5. Doxycycline started today 100 mg p.o. b.i.d. for a possible Lyme disease. 6. Subcu heparin 5000 units q.8. 7. Flonase 50 mcg a day. ALLERGIES: Include NEOSPORIN TOPICAL with a rash, CRESTOR, and ADHESIVE. SOCIAL HISTORY: She is . She has 2 children, 1 son is disabled after motor vehicle accident, is dependent on her for transportation. Her mother is alive at 87, but had a stent placed in her 60s. Father at 84. She has a brother, who is alive and well as far as she knows. 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 She says she is on her feet all day. She drinks 1 to 2 drinks per week, usually on the weekends. She drinks 2 cups of caffeinated coffee a day. REVIEW OF SYSTEMS: Review of systems x10 was negative, except as above. PHYSICAL EXAM: She is a well-developed, obese female. Weight 228 pounds; blood pressure 148/69; pulse 82; temperature 97.9, it was 100.8 this morning at 5:42 a.m. No significant JVD. Carotids 2+ without bruits. Cardiac Exam: S1, S2, with no clear murmurs, gallops, or rubs. Chest was clear, no CVAT. Abdomen : Bowel sounds present, obese, nontender. Femoral pulses intact with a right femoral bruit. Distal pulses present. Significant edema. There was an area of erythema adjacent to the left posterior leg, just above the knee. There was also an area of excoriation and skin breakdown in the center where she was itching. Motor strength 5/5 bilaterally. Deep tendon reflexes 2/4. Alert and oriented x3. DIAGNOSTIC STUDIES/LAB DATA: Include CBC with a low platelet count of 143, down from 167. Her sed rate was 33 yesterday. Her platelets were high at 441. INR of 1.1, PTT 30. Her initial troponin yesterday afternoon was 0.36, 0.17 last night, and 0.13 last night. Sodium 136, potassium of 3.8, BUN 10, creatinine of 0.87. CRP elevated at 112 yesterday. BNP normal at 44. EKGs were described above. She did have an echocardiogram performed today, which revealed mild concentric LVH, multiple regional wall motion abnormalities, mild to moderately decreased LV function with relative hypokinesis in the inferior and posterior segments, EF of 40% to 45%. These were most prominent in the mid inferolateral, mid inferior apical, and apical inferior segments as well as posterior wall. Aortic leaflets were mildly thickened. There was trace MR, trace TR. She had a repeat evaluation with contrast added, which showed similar findings with inferior posterior hypokinesis extending towards the apex. IMPRESSION AND PLAN: My impression is that Ms. Cervantes has febrile illness, elevated sed rate, and CRP, and wall motion abnormalities. Dr. Rocha believes that she may have Lyme disease. Her EKG raises the possibility of an old inferior myocardial infarction and she has had symptoms of dyspnea on exertion for many months, perhaps more than a year. She could have a myocarditis of some etiology. Given the focality of the wall motion abnormalities, risk factors, and her exertional dyspnea for a prolonged period of time, I suspect that she is at risk for coronary disease and this may represent ischemic cardiomyopathy. I did discuss these findings with her and Dr. Perez and have recommended the following: Treat her febrile illness as you are doing. Would follow serial troponins with sed rate and CRP. Would add aspirin to her regimen as you are doing. Would continue with a beta emmanuel. Would add a statin. I have strongly advised her to discontinue tobacco use and she understands the importance of that. I would try to supplement her potassium to maintain it in the normal range. Would consider a cardiac catheterization next week to further define her anatomy. Long-term weight reduction and regular amount of exercises are advised. [id number]/[facility] #: [id number] RUBÉN
[2018-04-08] MEDS: NS 0.9% 1000 ML* 1,000 ML IV SCH (00:55)
[2018-04-08 06:07] LABS: ABS Basophils 0 10^3/ul (0-0.2); ABS Eosinophils 0.1 10^3/ul (0-0.6); ABS Lymphocytes 1.7 10^3/ul (1.0-4.8); ABS Monocytes 0.8 10^3/ul (0-0.8); ABS Neutrophils 4.2 10^3/ul (1.5-7.7); ABS Nucleated RBC 0 10^3/ul; Eosinophil % 1.6 % (0-6); Hematocrit 37 % (35-47); Hemoglobin 11.9 g/dl (12.0-16.0); Lymphocyte % 25.5 % (25-47); Mean Corpuscular HGB Conc 32 g/dl (31-36); Mean Corpuscular Hemoglobin 28 pg (27-31); Mean Corpuscular Volume 85 fL (80-97); Mean Platelet Volume 10.2 um3 (7.4-10.4); Nucleated Red Blood Cells % 0.1; Platelet Count 155 10^3/ul (150-450); Red Blood Count 4.35 10^6/ul (4.00-5.40); Red Cell Distribution Width 15 % (10.5-15); White Blood Count 6.8 10^3/ul (3.5-10.8)
[2018-04-08 06:18] LABS: EGFR Non-African American 101.3 (>60)
[2018-04-08] MEDS: Heparin VIAL(*) 5000 UNITS/ML VIAL (FIVE THOUSAND) SUBCUT SCH ×3 (06:46→22:27)
[2018-04-08] MEDS: Tiotropium CAP.INH* CAP.INH/18 MCG (USE ORDER SET !) INH SCH (07:35)
[2018-04-08] MEDS: Metoprolol Succinate XL TAB* 25 MG PO SCH (08:37)
[2018-04-08] MEDS: Aspirin EC TAB* 81 MG TAB.EC PO SCH (08:37)
[2018-04-08] MEDS: DOXYcycline CAP(*) 100 MG PO SCH ×2 (08:37→22:27)
[2018-04-08] MEDS: Potassium Chlor TAB* 20 MEQ TAB.ER PO SCH (08:37)
[2018-04-08] MEDS: Lisinopril TAB* 10 MG PO SCH (08:37)
[2018-04-08] MEDS: amLODIPine TAB* 5 MG PO SCH (08:37)
[2018-04-08] MEDS: Ibuprofen TAB* 600 MG PO PRN (09:31)
[2018-04-08] MEDS ORDERED: Metoprolol Succinate XL TAB* 25 MG PO ONE (10:54)
--- NOTE | 2018-04-08 11:05 | PN ---
Subjective Date of Service: 04/08/18 Interval History: HOSPITALIST PROGRESS NOTE Patient seen and examined at bedside. Care reviewed and d/w Remi Mohan RN. Afebrile so far today. Feels fatigued and still has body aches, but feels a little better. Denies chest pain, palpitations, or dyspnea. Has developed a full blown "bulls eye" rash on her left thigh. Family History: Unchanged from Admission Social History: Unchanged from Admission Past Medical History: Unchanged from Admission Objective Active Medications: Acetaminophen (Tylenol Tab*) 650 mg PO Q4H PRN PRN Reason: FEVER/PAIN Last Admin: 04/07/18 05:45 Dose: 650 mg Amlodipine Besylate (Norvasc Tab*) 5 mg PO DAILY [facility] Last Admin: 04/08/18 08:37 Dose: 5 mg Aspirin (Aspirin Ec Tab*) 81 mg PO DAILY [facility] Last Admin: 04/08/18 08:37 Dose: 81 mg Atorvastatin Calcium (Lipitor*) 40 mg PO 1700 [facility] Last Admin: 04/07/18 17:02 Dose: Not Given Doxycycline Hyclate (Vibramycin Cap(*)) 100 mg PO BID [facility] Last Admin: 04/08/18 08:37 Dose: 100 mg Fluticasone Propionate (Flonase Nasal [place] 50mcg*) 2 spray BOTH NARES 1200 [facility] Last Admin: 04/07/18 12:00 Dose: 2 spray Heparin Sodium (Porcine) (Heparin Vial(*)) 5,000 units SUBCUT Q8HR [facility] Last Admin: 04/08/18 06:46 Dose: 5,000 units Sodium Chloride (Ns 0.9% 1000 Ml*) 1,000 mls @ 100 mls/hr IV PER RATE [facility] Last Admin: 04/08/18 00:55 Dose: 100 mls/hr Ibuprofen (Motrin Tab*) 600 mg PO Q6H PRN PRN Reason: Pain/fever Last Admin: 04/08/18 09:31 Dose: 600 mg Lisinopril (Prinivil Tab*) 40 mg PO DAILY [facility] Last Admin: 04/08/18 08:37 Dose: 40 mg Metoprolol Succinate (Toprol Xl Tab*) 25 mg PO ONCE ONE Stop: 04/08/18 10:55 Metoprolol Succinate (Toprol Xl Tab*) 50 mg PO BID [facility] Potassium Chloride (Klor Con Er Tab*) 20 meq PO DAILY [facility] Last Admin: 04/08/18 08:37 Dose: 20 meq Tiotropium [place] (Spiriva Cap.Inh*) 1 cap INH DAILY [facility] Last Admin: 04/08/18 07:35 Dose: 1 cap Vital Signs - 8 hr 04/08/18 04/08/18 04/08/18 03:24 07:40 08:00 Temperature 97.7 F 98.0 F Pulse Rate 65 73 Respiratory 18 16 16 Rate Blood Pressure 140/71 147/68 (mmHg) O2 Sat by Pulse 94 92 Oximetry Oxygen Devices in Use Now: None Appearance: Pleasant lady sitting up in bed in NAD. Eyes: No Scleral Icterus Ears/Nose/Mouth/Throat: Mucous Membranes Moist Neck: Trachea Midline Respiratory: Symmetrical Chest Expansion and Respiratory Effort, Clear to Auscultation Cardiovascular: NL Sounds; No Murmurs; No JVD, RRR Extremities: No Edema Skin: - - Bulls eye rash left thigh posterior area - see picture Neurological: Alert and Oriented x 3, NL Muscle Strength and Tone Result Diagrams: 04/08/18 05:27 04/08/18 05:27 Diagnostic Imaging: Left posterior thigh 04/08/18 Assess/Plan/Problems-Billing Assessment: Mrs. Cervantes is a 62yo F with PMH of GERD, HLD, HTN, diverticulosis, tobacco abuse, who presented to ED with fever of unclear origin. - Patient Problems (1) Lyme disease Comment: - Fever secondary to Lyme disease - she has now developed a bulls eye rash. - ID input appreciated - continue doxycycline. (2) NSTEMI (non-ST elevated myocardial infarction) Comment: - Patient denies chest pain and EKG showed no acute ischemic changes, but echo showed EF 40-45% with subtle relative hypokinesis of the inferior and posterior segments and mild troponin elevation. - Cardiology consult appreciated - will continue medical management with Aspirin , Metoprolol. Plan for cardiac cath 04/10. - Patient states she cannot tolerate statins due to severe myalgias. (3) HTN (hypertension) Comment: - Continue Amlodipine and Lisinopril. (4) DVT prophylaxis Comment: - SQ heparin. (5) Full code status Status and Disposition: Inpatient.
[2018-04-08] MEDS: Acetaminophen TAB* 325 MG PO PRN (12:55)
[2018-04-08] MEDS: Fluticasone NASAL SPRAY 50MCG* 16 gm SPRAY BTL BOTH NARES SCH (14:21)
[2018-04-08] MEDS: Metoprolol Succinate XL TAB* 50 MG PO SCH (22:27)
[2018-04-09] MEDS: Acetaminophen TAB* 325 MG PO PRN ×2 (00:12→09:29)
[2018-04-09] MEDS ORDERED: Calcium Carbonate CHEW TAB* 500 MG (TUMS) PO PRN (00:22)
[2018-04-09] MEDS: Ibuprofen TAB* 600 MG PO PRN ×2 (06:10→12:44)
[2018-04-09] MEDS: Heparin VIAL(*) 5000 UNITS/ML VIAL (FIVE THOUSAND) SUBCUT SCH ×3 (06:11→21:25)
[2018-04-09 07:05] LABS: ABS Basophils 0.1 10^3/ul (0-0.2); ABS Eosinophils 0.1 10^3/ul (0-0.6); ABS Lymphocytes 2.2 10^3/ul (1.0-4.8); ABS Monocytes 0.6 10^3/ul (0-0.8); ABS Neutrophils 4.8 10^3/ul (1.5-7.7); ABS Nucleated RBC 0 10^3/ul; Eosinophil % 1.3 % (0-6); Hematocrit 36 % (35-47); Hemoglobin 12.2 g/dl (12.0-16.0); Lymphocyte % 28.6 % (25-47); Mean Corpuscular HGB Conc 34 g/dl (31-36); Mean Corpuscular Hemoglobin 28 pg (27-31); Mean Corpuscular Volume 83 fL (80-97); Mean Platelet Volume 10.3 um3 (7.4-10.4); Nucleated Red Blood Cells % 0; Platelet Count 202 10^3/ul (150-450); Red Blood Count 4.35 10^6/ul (4.00-5.40); Red Cell Distribution Width 15 % (10.5-15); White Blood Count 7.8 10^3/ul (3.5-10.8)
[2018-04-09 07:23] LABS: EGFR Non-African American 95.8 (>60)
[2018-04-09] MEDS: Tiotropium CAP.INH* CAP.INH/18 MCG (USE ORDER SET !) INH SCH (07:26)
[2018-04-09] MEDS: amLODIPine TAB* 5 MG PO SCH (09:28)
[2018-04-09] MEDS: DOXYcycline CAP(*) 100 MG PO SCH ×2 (09:28→21:25)
[2018-04-09] MEDS: Potassium Chlor TAB* 20 MEQ TAB.ER PO SCH (09:28)
[2018-04-09] MEDS: Lisinopril TAB* 10 MG PO SCH (09:28)
[2018-04-09] MEDS: Metoprolol Succinate XL TAB* 50 MG PO SCH ×2 (09:28→21:25)
[2018-04-09] MEDS: Aspirin EC TAB* 81 MG TAB.EC PO SCH (09:28)
[2018-04-09] MEDS: Fluticasone NASAL SPRAY 50MCG* 16 gm SPRAY BTL BOTH NARES SCH (12:44)
--- NOTE | 2018-04-09 14:16 | PN ---
Subjective Date of Service: 04/09/18 Interval History: HOSPITALIST PROGRESS NOTE Patient seen and examined at bedside. She feels better today. Cannot sleep well in the hospital, feels tired. but bodyaches and fever are less intense. Denies chest pain or dyspnea. C/o cough with clear sputum and small speck of blood. Family History: Unchanged from Admission Social History: Unchanged from Admission Past Medical History: Unchanged from Admission Objective Active Medications: Acetaminophen (Tylenol Tab*) 650 mg PO Q4H PRN PRN Reason: FEVER/PAIN Last Admin: 04/09/18 09:29 Dose: 650 mg Amlodipine Besylate (Norvasc Tab*) 5 mg PO DAILY [facility] Last Admin: 04/09/18 09:28 Dose: 5 mg Aspirin (Aspirin Ec Tab*) 81 mg PO DAILY [facility] Last Admin: 04/09/18 09:28 Dose: 81 mg Calcium Carbonate (Tums*) 500 mg PO BID PRN PRN Reason: HEARTBURN Last Admin: 04/09/18 00:48 Dose: 500 mg Doxycycline Hyclate (Vibramycin Cap(*)) 100 mg PO BID [facility] Last Admin: 04/09/18 09:28 Dose: 100 mg Fluticasone Propionate (Flonase Nasal [place] 50mcg*) 2 spray BOTH NARES 1200 [facility] Last Admin: 04/09/18 12:44 Dose: 2 spray Heparin Sodium (Porcine) (Heparin Vial(*)) 5,000 units SUBCUT Q8HR [facility] Last Admin: 04/09/18 12:45 Dose: 5,000 units Sodium Chloride (Ns 0.9% 1000 Ml*) 1,000 mls @ 100 mls/hr IV .per rate [facility] Ibuprofen (Motrin Tab*) 600 mg PO Q6H PRN PRN Reason: Pain/fever Last Admin: 04/09/18 12:44 Dose: 600 mg Lisinopril (Prinivil Tab*) 40 mg PO DAILY [facility] Last Admin: 04/09/18 09:28 Dose: 40 mg Metoprolol Succinate (Toprol Xl Tab*) 50 mg PO BID [facility] Last Admin: 04/09/18 09:28 Dose: 50 mg Potassium Chloride (Klor Con Er Tab*) 20 meq PO DAILY [facility] Last Admin: 04/09/18 09:28 Dose: 20 meq Tiotropium [place] (Spiriva Cap.Inh*) 1 cap INH DAILY [facility] Last Admin: 04/09/18 07:26 Dose: 1 cap Vital Signs - 8 hr 04/09/18 04/09/18 04/09/18 07:17 07:37 11:14 Temperature 98.4 F 97.6 F Pulse Rate 67 65 Respiratory 20 16 18 Rate Blood Pressure 143/68 123/56 (mmHg) O2 Sat by Pulse 94 94 Oximetry Oxygen Devices in Use Now: None Appearance: Pleasant lady sitting up in bed in NAD. Eyes: No Scleral Icterus Ears/Nose/Mouth/Throat: Mucous Membranes Moist Neck: Trachea Midline Respiratory: Symmetrical Chest Expansion and Respiratory Effort, Clear to Auscultation Cardiovascular: RRR - Normal S1 and S2 Skin: - - LLE bulls eye rash is clearing up Neurological: Alert and Oriented x 3, NL Muscle Strength and Tone Result Diagrams: 04/09/18 06:04 04/09/18 06:04 Diagnostic Imaging: Left posterior thigh 04/08/18 Assess/Plan/Problems-Billing Assessment: Mrs. Cervantes is a 62yo F with PMH of GERD, HLD, HTN, diverticulosis, tobacco abuse, who presented to ED with fever of unclear origin. - Patient Problems (1) Lyme disease Comment: - Fever secondary to Lyme disease - she has now developed a bulls eye rash. - ID input appreciated - continue doxycycline. (2) NSTEMI (non-ST elevated myocardial infarction) Comment: - Patient denies chest pain and EKG showed no acute ischemic changes, but echo showed EF 40-45% with subtle relative hypokinesis of the inferior and posterior segments and mild troponin elevation. - Cardiology consult appreciated - will continue medical management with Aspirin , Metoprolol. Plan for cardiac cath 04/10. - Patient states she cannot tolerate statins due to severe myalgias. (3) Hemoptysis Comment: - Patient has productive cough with clear sputum and small speck of blood. Suspect this is her chronic smoker's cough and now with Aspirin and Heparin on board she's bleeding a little. - CxR showed no acute disease and CT chest was negative for parenchymal masses or infiltrates, as well as not endobronchial lesions. - Will continue to monitor. (4) HTN (hypertension) Comment: - Continue Amlodipine and Lisinopril. (5) DVT prophylaxis Comment: - SQ heparin. (6) Full code status Status and Disposition: Inpatient.
[2018-04-10] MEDS: Heparin VIAL(*) 5000 UNITS/ML VIAL (FIVE THOUSAND) SUBCUT SCH ×3 (05:47→20:57)
[2018-04-10] MEDS: Tiotropium CAP.INH* CAP.INH/18 MCG (USE ORDER SET !) INH SCH (08:12)
[2018-04-10] MEDS: Acetaminophen TAB* 325 MG PO PRN (08:16)
[2018-04-10] MEDS: NS 0.9% 1000 ML* 1,000 ML IV SCH ×3 (08:16→18:10)
[2018-04-10] MEDS: amLODIPine TAB* 5 MG PO SCH (08:18)
[2018-04-10] MEDS: Metoprolol Succinate XL TAB* 50 MG PO SCH ×2 (08:18→20:57)
[2018-04-10] MEDS: Potassium Chlor TAB* 20 MEQ TAB.ER PO SCH (08:19)
[2018-04-10] MEDS: Aspirin EC TAB* 81 MG TAB.EC PO SCH (08:19)
[2018-04-10] MEDS: Lisinopril TAB* 10 MG PO SCH (08:20)
[2018-04-10] MEDS: DOXYcycline CAP(*) 100 MG PO SCH ×2 (08:20→20:57)
[2018-04-10] MEDS ORDERED: fentaNYL* 50 MCG/ML 2 ML VIAL (100 MCG VIAL) ONE (10:28)
[2018-04-10] MEDS ORDERED: Midazolam* 1 MG/ML 10 ML VIAL (10 MG) ONE (10:28)
[2018-04-10] MEDS ORDERED: Iohexol 350 (CONTRAST) 200 ML MDV IV ONE (10:29)
[2018-04-10] MEDS ORDERED: Heparin 2 UNITS/ML IVPREMIX* 2,000 ML IV ONE (10:29)
[2018-04-10] MEDS ORDERED: Lidocaine 1% INJ* 10 MG/ML 30 ML SDV ONE (10:29)
[2018-04-10] MEDS ORDERED: nitroGLYCERIN DRIP* 25,000 MCG/250 ML BTL ONE (10:29)
[2018-04-10] MEDS ORDERED: Heparin(*) 1000 UNIT/ML 10 ML VIAL CATH LAB IV ONE (10:30)
[2018-04-10] MEDS ORDERED: VERAPAMIL 2.5 MG/ML 2 ML VIAL ** 5 mg/2 ml ONE (10:30)
[2018-04-10] MEDS ORDERED: Adenosine* 3 MG/ML VIAL ONE (11:30)
[2018-04-10] MEDS ORDERED: NS 0.9% 1000 ML* 1,000 ML IV SCH (12:15)
[2018-04-10] MEDS: Fluticasone NASAL SPRAY 50MCG* 16 gm SPRAY BTL BOTH NARES SCH (16:33)
[2018-04-10] MEDS ORDERED: Nicotine Inhaler* 10 MG AMP INH PRN (17:09)
[2018-04-10] MEDS ORDERED: Mouth Piece, Nicotine* 1 EACH CARTRIDGE INH PRN (17:09)
--- NOTE | 2018-04-10 17:09 | PN ---
Subjective Date of Service: 04/10/18 Interval History: HOSPITALIST PROGRESS NOTE Patient seen and examined at bedside. Care reviewed and d/w Jessi Campbell RN. She feels better today and is anxious for discharge. Family History: Unchanged from Admission Social History: Unchanged from Admission Past Medical History: Unchanged from Admission Objective Active Medications: Acetaminophen (Tylenol Tab*) 650 mg PO Q4H PRN PRN Reason: FEVER/PAIN Last Admin: 04/10/18 08:16 Dose: 650 mg Amlodipine Besylate (Norvasc Tab*) 5 mg PO DAILY [facility] Last Admin: 04/10/18 08:18 Dose: 5 mg Aspirin (Aspirin Ec Tab*) 81 mg PO DAILY [facility] Last Admin: 04/10/18 08:19 Dose: 81 mg Calcium Carbonate (Tums*) 500 mg PO BID PRN PRN Reason: HEARTBURN Last Admin: 04/09/18 00:48 Dose: 500 mg Doxycycline Hyclate (Vibramycin Cap(*)) 100 mg PO BID [facility] Last Admin: 04/10/18 08:20 Dose: 100 mg Fluticasone Propionate (Flonase Nasal [place] 50mcg*) 2 spray BOTH NARES 1200 [facility] Last Admin: 04/10/18 16:33 Dose: 2 spray Heparin Sodium (Porcine) (Heparin Vial(*)) 5,000 units SUBCUT Q8HR [facility] Last Admin: 04/10/18 16:33 Dose: 5,000 units Sodium Chloride (Ns 0.9% 1000 Ml*) 1,000 mls @ 75 mls/hr IV .per rate [facility] Ibuprofen (Motrin Tab*) 600 mg PO Q6H PRN PRN Reason: Pain/fever Last Admin: 04/09/18 12:44 Dose: 600 mg Lisinopril (Prinivil Tab*) 40 mg PO DAILY [facility] Last Admin: 04/10/18 08:20 Dose: 40 mg Metoprolol Succinate (Toprol Xl Tab*) 50 mg PO BID [facility] Last Admin: 04/10/18 08:18 Dose: 50 mg Potassium Chloride (Klor Con Er Tab*) 20 meq PO DAILY [facility] Last Admin: 04/10/18 08:19 Dose: 20 meq Tiotropium [place] (Spiriva Cap.Inh*) 1 cap INH DAILY [facility] Last Admin: 04/10/18 08:12 Dose: 1 cap Vital Signs - 8 hr 04/10/18 04/10/18 04/10/18 12:10 12:15 12:25 Temperature Pulse Rate 63 63 65 Respiratory 21 24 21 Rate Blood Pressure 141/72 155/74 (mmHg) O2 Sat by Pulse 91 89 89 Oximetry 04/10/18 04/10/18 04/10/18 12:30 12:40 12:45 Temperature Pulse Rate 63 62 62 Respiratory 20 16 21 Rate Blood Pressure 143/82 (mmHg) O2 Sat by Pulse 93 94 90 Oximetry 04/10/18 04/10/18 04/10/18 13:00 13:15 13:30 Temperature Pulse Rate 68 61 63 Respiratory 21 20 18 Rate Blood Pressure (mmHg) O2 Sat by Pulse 96 93 91 Oximetry 04/10/18 04/10/18 04/10/18 13:45 14:00 14:15 Temperature Pulse Rate 62 58 71 Respiratory 19 18 20 Rate Blood Pressure (mmHg) O2 Sat by Pulse 88 95 93 Oximetry 04/10/18 04/10/18 04/10/18 14:30 14:45 15:00 Temperature Pulse Rate 69 63 66 Respiratory 14 12 20 Rate Blood Pressure (mmHg) O2 Sat by Pulse 94 95 95 Oximetry 04/10/18 15:35 Temperature 97.6 F Pulse Rate 65 Respiratory 18 Rate Blood Pressure 126/59 (mmHg) O2 Sat by Pulse 97 Oximetry Oxygen Devices in Use Now: None Appearance: Pleasant lady sitting up in bed in NAD. Eyes: No Scleral Icterus Ears/Nose/Mouth/Throat: Mucous Membranes Moist Neck: Trachea Midline Respiratory: Symmetrical Chest Expansion and Respiratory Effort, Clear to Auscultation Cardiovascular: RRR - Normal S1 and S2 Abdominal: NL Sounds; No Tenderness; No Distention Neurological: Alert and Oriented x 3, NL Muscle Strength and Tone Result Diagrams: 04/09/18 06:04 04/09/18 06:04 Diagnostic Imaging: Left posterior thigh 04/08/18 Assess/Plan/Problems-Billing Assessment: Mrs. Cervantes is a 62yo F with PMH of GERD, HLD, HTN, diverticulosis, tobacco abuse, who presented to ED with fever of unclear origin. - Patient Problems (1) Lyme disease Comment: - Fever secondary to Lyme disease - see picture of bulls eye rash. - ID input appreciated - continue doxycycline. (2) NSTEMI (non-ST elevated myocardial infarction) Comment: - Patient denies chest pain and EKG showed no acute ischemic changes, but echo showed EF 40-45% with subtle relative hypokinesis of the inferior and posterior segments and mild troponin elevation. - Cardiology consult appreciated - will continue medical management with Aspirin , Metoprolol. Cardiac cath showed 50-55% stenosis of LAD - plan for medical management with tobacco cessation, weight loss, aspirin, metoprolol, and PCSK9 inhibitors since patient cannot tolerate statins due to severe myalgias. (3) Hemoptysis Comment: - Patient has productive cough with clear sputum and small speck of blood. Suspect this is her chronic smoker's cough and now with Aspirin and Heparin on board she's bleeding a little. - CxR showed no acute disease and CT chest was negative for parenchymal masses or infiltrates, as well as not endobronchial lesions. - Will continue to monitor. (4) HTN (hypertension) Comment: - Continue Amlodipine and Lisinopril. (5) DVT prophylaxis Comment: - SQ heparin. (6) Full code status Status and Disposition: Inpatient. Anticipate d/c in AM.
[2018-04-11] MEDS: Acetaminophen TAB* 325 MG PO PRN (06:05)
[2018-04-11] MEDS: Heparin VIAL(*) 5000 UNITS/ML VIAL (FIVE THOUSAND) SUBCUT SCH (06:06)
[2018-04-11] MEDS: Tiotropium CAP.INH* CAP.INH/18 MCG (USE ORDER SET !) INH SCH (07:54)
[2018-04-11 08:18] VITALS: BP 143/76
[2018-04-11] MEDS: DOXYcycline CAP(*) 100 MG PO SCH (08:22)
[2018-04-11] MEDS: Metoprolol Succinate XL TAB* 50 MG PO SCH (08:22)
[2018-04-11] MEDS: amLODIPine TAB* 5 MG PO SCH (08:23)
[2018-04-11] MEDS: Potassium Chlor TAB* 20 MEQ TAB.ER PO SCH (08:24)
[2018-04-11] MEDS: Lisinopril TAB* 10 MG PO SCH (08:24)
[2018-04-11] MEDS: Aspirin EC TAB* 81 MG TAB.EC PO SCH (08:25)
[2018-04-11] MEDS: NS 0.9% 1000 ML* 1,000 ML IV SCH (08:25)
--- NOTE | 2018-04-12 03:31 | CATH ---
CC: Dr. Chairez, [facility]; Dr. Aleksandr Sharma * CARDIAC CATHETERIZATION REPORT: DATE OF PROCEDURE: 04/10/18 - ROOM #444 INDICATION FOR PROCEDURE: Asked by Dr. Sharma to perform diagnostic cardiac catheterization in light of cardiomyopathy and question of segmental wall motion abnormality. PROCEDURE: Left heart catheterization, left ventriculography, coronary arteriography, fractional flow reserve analysis of the left anterior descending artery. APPROACH: Right radial artery. EQUIPMENT UTILIZED: 1. Right radial artery sheath, 6-Stateless glide sheath. Diagnostic catheter was a TIG4 5-Stateless catheter for the right coronary artery, a FL3.5 curve 5-Stateless for the left coronary artery, a Dorsey exchange length wire was utilized for all exchanges. 2. Left heart catheterization catheter, a 5-Stateless PICC Performa radial catheter. 3. A guide catheter for FFR, a 6-Stateless VL3 curve guide catheter. 4. The fractional flow reserve catheter, a PressureWire X by [employer]. MEDICATION GIVEN: 1. Versed 1 mg. 2. The radial artery cocktail including 3000 units of heparin, 3 mg of verapamil, and 300 mcg of nitroglycerin. 3. Additional heparin 3000 units for FFR procedure. 4. Intracoronary adenosine. 5. Additional Versed 0.5 mg. DESCRIPTION OF PROCEDURE: The patient was brought into the cardiovascular laboratory where a formal time-out was performed. The patient was prepped and draped in the sterile fashion. The right radial artery had already been assessed under ultrasound guidance on the floor of the hospital and found to be acceptable for an approach. The right radial artery area was prepped and draped in sterile fashion and anesthetized with 1% lidocaine. The right radial artery was cannulated and an introducer was placed. Diagnostic catheterization was performed utilizing the TIG4 and FL3.5 curve catheters. Following this, left heart catheterization was performed utilizing the PIG Performa catheter. Following this, additional heparin was given for FFR procedure. The guiding catheter was placed and then FFR was performed to the distal LAD to assess both the ostial LAD lesion and the mid LAD lesion. Following this, an injection was made after the procedure. Boluses of adenosine including 72 mcg and 96 mcg were given intracoronary. RESULTS: HEMODYNAMIC DATA: Left heart catheterization: Central aortic pressure recorded at 145 over 64 with a mean of 97. Left ventricular pressure of 144 over left ventricular end- diastolic pressure of 18 to 21 mmHg. LEFT VENTRICULOGRAPHY: Performed in the HAN projection revealed several PVCs with post-PVC beat showing low-normal left ventricular systolic function, overall estimated ejection fraction was 45% to 50%. CORONARY ARTERIOGRAPHY: A. Right coronary artery - a dominant vessel supplying the PDA and multiple posterior left ventricular branches. There was very mild proximal caliber change of 25%. There was no significant lesion seen throughout the rest of the right coronary artery. Of note, the first and second posterior left ventricular branches were small in caliber as was the fourth. B. Left coronary artery: 1. Left main. There was distal tapering in the left main of approximately 10% to 15%. 2. Left anterior descending artery. The ostium of the left anterior descending artery had a narrowing of approximately 40% to 45% best viewed in the SEUN caudal projection. The midportion of the left anterior descending artery had a 50% to 55% lesion seen in its mid segment after a mid diagonal branch. The rest of the left anterior descending artery had no significant disease seen. The diagonal branches revealed no significant disease. 3. Circumflex artery - a nondominant vessel with [id number] ostial narrowing of 35% to 40%. The rest of the circumflex supplied a very high small caliber first obtuse marginal branch with a large mid obtuse marginal branch, which trifurcated in its distal portion. There were no significant lesions seen throughout the course of the vessel. The circumflex continued a small caliber vessel to supply a very low lying posterior left ventricular branch. FRACTIONAL FLOW RESERVE ANALYSIS OF THE LEFT ANTERIOR DESCENDING ARTERY: Fractional flow reserve analysis was performed past the mid lesion so as to assess both lesions for severity as a starting point. Fractional flow reserve analysis were found to be negative for hemodynamic significance with FFR values of 0.90 and 0.89. OVERALL ASSESSMENT: Moderate coronary artery disease involving the ostium of the LAD as well as the ostium of the circumflex and the mid segment of the left anterior descending artery with negative fractional flow reserve findings for hemodynamic significance. At this point in time, aggressive medical management needs to be pursued given the critical locations of the ostium of both LAD and circumflex. The patient needs to follow up with smoking cessation, which I emphasized again to her, in addition to weight reduction and I believe the patient needs to be placed on to anti-hyperlipidemic medications. Apparently, the patient has failed two statin therapies in the past and this should qualify her for the new injectable agents. This can be undertaken by Dr. Chairez or by Dr. Aleksandr Sharma, the primary junior sales assistant, who will be seeing her in followup after my wound check on her next week. Continued therapy with JONN inhibitor, beta-emmanuel, aspirin should be pursued. [id number]/[facility] #: [id number] [facility] CENTERChristoph
--- NOTE | 2018-04-13 04:57 | DS ---
CC: Dr. Chairez; Dr. Sharma; Dr. Loaiza * DISCHARGE SUMMARY: DATE OF ADMISSION: 04/06/18 DATE OF DISCHARGE: 04/11/18 PRIMARY CARE PROVIDER: Dr. Chairez. CONSULTING ENTRY PROCESSOR: Dr. Sharma. CONSULTING EMERGENCY MANAGEMENT PROGRAM SPECIALIST: Dr. Loaiza. DISCHARGE DIAGNOSES: 1. Early localized Lyme disease. 2. Non-ST elevation myocardial infarction. 3. Statins intolerance. 4. Hemoptysis. SECONDARY DIAGNOSES: 1. Gastroesophageal reflux disease. 2. Hyperlipidemia. 3. Hypertension. 4. Diverticulosis. 5. Tobacco abuse. MEDICATION LIST: 1. Spiriva 1 capsule inhaled daily. 2. Fluticasone nasal spray 50 mcg 2 sprays to both nares daily. 3. Ibuprofen 600 to 800 mg p.o. daily as needed for pain. 4. Lisinopril 40 mg p.o. daily. 5. Amlodipine 5 mg p.o. daily. New medications: 1. Nitroglycerin 0.4 mg sublingual q.5 minutes p.r.n. chest pain, maximum 3 doses. 2. Nicotine patch 21 mg topical daily, remove at bedtime. 3. Metoprolol succinate 50 mg p.o. b.i.d. 4. Doxycycline 100 mg p.o. b.i.d. for 10 more days. 5. Aspirin 81 mg p.o. daily. HOSPITAL COURSE: Ms. Cervantes is a 62-year-old lady with a past medical history as stated above that presented to the emergency room on 04/06/18 with complaints of fever, chills and body aches. For more details about her history , I refer you to her history and physical. In the emergency room, the patient was to found to have a temperature of 102.8 and her laboratory results also showed troponin elevation with an initial troponin of 0.36. She was admitted under impression of fever and elevated troponin for further workup. On my initial evaluation, the patient denied any outdoor activities except going back and forth from work and she was not aware of any tick bite. On my initial examination, I did not notice any rashes. She was seen in consultation by Infectious Disease (Dr. Rocha) on the same date in the afternoon and the patient was noted to have a small erythematous area in the posterior aspect of her left knee and this progressed to a full-blown "bull's-eye" rash in less than 24 hours. At that point, it was clear that the source of her fever and body aches was early localized Lyme disease. The patient was started on doxycycline with significant improvement of her symptoms. Regarding her troponin, the patient had no complaints of chest pain, but her EKG did show small Q waves in the inferior leads and also minor specific inferior ST-T changes. Although, she had no chest pain, she clearly has risk factors for coronary artery disease including hypertension, hyperlipidemia and tobacco abuse. She was seen in consulting by Cardiology (Dr. Sharma) and he thought that her troponin elevation could be secondary to myocarditis as the patient had an infectious process, but since her echocardiogram had shown some focality of the wall motion abnormalities and also considering her risk factors of exertional dyspnea, he recommended a cardiac cath for further coronary anatomy delineation. Her transthoracic echocardiogram showed the ejection fraction of 40% to 45% with subtle relative hypokinesis of the inferior and posterior segments in the apical views with trace MR and TR. The patient was taken to the cardiac cath by Dr. Loaiza on 04/10/18 and she was found to have moderate coronary artery disease involving the ostium of the LAD as well as the ostium of the circumflex and the mid segment of the left anterior descending artery with negative FFR findings for hemodynamic significance. The LAD ostium was found to have 40% to 45% disease, midportion of LAD 50% to 55% lesion with the above-mentioned negative FFR. Dr. Loaiza's recommendation was for aggressive lifestyle modifications including smoking cessation, weight loss as well as management of her hyperlipidemia. He also recommended continuation of JONN inhibitors, beta- blockers and aspirin. One issue is the patient has a history of hyperlipidemia. Her lipid profile in the hospital showed a LDL of 106, but the patient cannot tolerate statins. She states that she tried atorvastatin, rosuvastatin and another one that she does not recall the name and all of them caused severe myalgias. Considering her coronary artery disease, the recommendation would be to try PCSK9 inhibitor ( alirocumab or evolocumab). Further discussion should be carried by the patient and her primary care provider as outpatient as the patient is still reluctant to try any other medications for her cholesterol due to being afraid of side effects. We also had a lengthy conversation about her tobacco abuse. The patient understands that if she continues to smoke, she will be at risk for worsening heart disease, lung disease, multiple types of cancer. At this point, she states that she was able to be without a cigarette while in the hospital and she is willing to try a nicotine patch for supplementation as outpatient, but further education will be required as outpatient. Of note, while in the hospital, the patient was started on aspirin and subcutaneous heparin and she developed minimal hemoptysis. She states that her cough was unchanged and she would have this little dark dots of blood in her phlegm. Her initial chest x-ray in the emergency room showed no evidence for acute disease and a CT of the chest showed no pulmonary parenchymal masses or infiltrates with a normal pulmonary interstitium and no endobronchial lesions. I believe at this point this minimal hemoptysis was secondary to the combined use of aspirin and subcutaneous heparin in a patient with known chronic cough associated with tobacco abuse, but the patient understands that she is at high risk for malignancies. If her hemoptysis persists, the patient will need further evaluation including Pulmonary and ENT consultations for possible video bronchoscopy/laryngoscopy looking for a malignancy as source of her hemoptysis. The patient had significant improvement of her symptoms. She remained afebrile and she was felt to be stable for discharge. PHYSICAL EXAMINATION: Vital Signs: Temperature 97.6, heart rate is 61, respiratory rate is 18, oxygen saturation 96% on room air, blood pressure is 143 /76. General: The patient is a pleasant lady, sitting up in bed, in no acute distress. CVS: Normal S1, S2. Regular rate and rhythm. Chest: Breath sounds present bilaterally with no added sounds. Abdomen is obese. Bowel sounds are present. Extremities: No edema. The bull's-eye rash on the posterior aspect of her left knee is clearing up and almost resolved. Neuro: She is alert and oriented x3. She is able to move all 4 extremities. DIET: Heart-healthy diet. ACTIVITIES: As tolerated. The patient received education about the limitations post cath and she received a letter to stay out of work until . She was advised to follow up with Dr. Chairez to discuss if she is able to return to her usual activities then. STATUS WHILE IN THE HOSPITAL: Inpatient. DISPOSITION: To home. Please keep in mind this is a summarized version of this patient's complex hospital stay. If you need more information, please feel free to call me at [phone] or please obtain the full medical records. TIME SPENT: Approximately 50 minutes were spent to complete this discharge. [id number]/[facility] #: [id number] RUBÉN
== END 2018-04-11 12:25 | disposition home or self-care (01) | DRG 190 ==
LOC: ED 15:11 → MEDTELE 18:24
PROVIDERS: ADMIT Student in an Organized Health Care Education/Training Program; ATTEND Internal Medicine
PROC: B211YZZ Fluoroscopy of Multiple Coronary Arteries using Other Contrast (ICD-10-PCS; 2018-04-10)
PROC: B215YZZ Fluoroscopy of Left Heart using Other Contrast (ICD-10-PCS; 2018-04-10)
PROC: 4A033BC Measurement of Arterial Pressure, Coronary, Percutaneous Approach (ICD-10-PCS; 2018-04-10)
PROC: 4A023N7 Measurement of Cardiac Sampling and Pressure, Left Heart, Percutaneous Approach (ICD-10-PCS; principal; 2018-04-10 10:00)
DX: I21.4 Non-ST elevation (NSTEMI) myocardial infarction (principal); A69.20 Lyme disease, unspecified; R04.2 Hemoptysis; D68.32 Hemorrhagic disorder due to extrinsic circulating anticoagulants; T45.515A Adverse effect of anticoagulants, initial encounter; Y92.230 Patient room in hospital as the place of occurrence of the external cause; I25.119 Atherosclerotic heart disease of native coronary artery with unspecified angina pectoris; I11.9 Hypertensive heart disease without heart failure; F17.210 Nicotine dependence, cigarettes, uncomplicated; E78.5 Hyperlipidemia, unspecified; K57.90 Diverticulosis of intestine, part unspecified, without perforation or abscess without bleeding; K21.9 Gastro-esophageal reflux disease without esophagitis; M19.90 Unspecified osteoarthritis, unspecified site; J32.8 Other chronic sinusitis; E66.9 Obesity, unspecified; R74.8 Abnormal levels of other serum enzymes; Z79.1 Long term (current) use of non-steroidal anti-inflammatories (NSAID); Z79.899 Other long term (current) drug therapy; Z88.8 Allergy status to other drugs, medicaments and biological substances; Z91.048 Other nonmedicinal substance allergy status; Z82.49 Family history of ischemic heart disease and other diseases of the circulatory system; Z83.3 Family history of diabetes mellitus; Z68.38 Body mass index [BMI] 38.0-38.9, adult
CPT/HCPCS: 36415; 70450; 71045; 71260; 74177; 76937; 80048; 80053; 80061; 81003; 81015; 82550; 83605; 83880; 84145; 84484; 85025; 85060; 85384; 85610; 85652; 85730; 86140; 86141; 86618; 87040; 87502; 93005; 93306; 93458; 94640; 99156; 99157; 99284; 99406; A9270-GY; C1769; C1887; C8929; J0153; J0696; J1644; J1885; J2250; J3010; Q9967

== ENCOUNTER 2018-12-19 14:50 | Emergency (ER) | payer BC ==
[2018-12-19] MEDS ORDERED: Cyclobenzaprine TAB* 10 MG PO ONE (15:48)
[2018-12-19] MEDS ORDERED: predniSONE TAB* 20 MG PO ONE (15:48)
[2018-12-19] MEDS ORDERED: HYDROcodone/ACETAMIN 5-325 MG* 1 TAB PO ONE (15:48)
--- NOTE | 2018-12-19 16:48 | ED ---
Back Pain - HPI Summary HPI Summary: Pt. is a 63 y.o female who presents to the ER for right low back pain x 10 days. Pt. denies any injury or falls. She notes she has had back in past but not to this severity. Pt. notes pain radiates into right leg. Denies associated sxs of numbness/weakness in legs. She notes occasional paresthesias with position in right leg. She denies bowel or bladder incontinence or retention. She denies urinary sxs or fever. She has been taking tylenol without relief. Pt .states she has seen a chiropractor 3 x in last 10 days. She states today after adjustment she was in too much pain to walk so presents to the ER. Sxs are mild in severity. Movement makes sxs worse. Nothing makes sxs better. Pt. notes she is unable to take NSAIDs secondary to her cardio meds. - History of Current Complaint Chief Complaint: EDBackInjuryPain Stated Complaint: BACK PAIN Time Seen by Provider: 12/19/18 15:04 Hx Obtained From: Patient Pain Intensity: 10 - Allergies/Home Medications Allergies/Adverse Reactions: Allergies Allergy/AdvReac Type Severity Reaction Status Date / Time Adhesive Tape Allergy Rash Verified 12/19/18 15:00 bacitracin Allergy Itching Verified 12/19/18 15:00 [From Neosporin ([id number])] neomycin Allergy Itching Verified 12/19/18 15:00 [From Neosporin ([id number])] polymyxin B Allergy Itching Verified 12/19/18 15:00 [From Neosporin ([id number])] PMH/Surg Hx/FS Hx/Imm Hx Previously Healthy: Yes Endocrine/Hematology History: Denies: Hx Diabetes, Hx Thyroid Disease Cardiovascular History: Reports: Hx Angina, Hx Coronary Artery Disease, Hx Hypertension - ON MEDICATION FOR, Hx Myocardial Infarction Denies: Hx Congestive Heart Failure, Hx Pacemaker/ICD, Other Cardiovascular Problems/Disorders Respiratory History: Denies: Hx Asthma, Hx Chronic Obstructive Pulmonary Disease (COPD), Other Respiratory Problems/Disorders GI History: Reports: Hx Gastroesophageal Reflux Disease - OCCASIONALLY-PRN PREVACID, Other GI Disorders - HX OF DIVERTICULITIS Denies: Hx Ulcer History: Denies: Hx Renal Disease Musculoskeletal History: Reports: Hx Arthritis - thumbs and shoulders and hip Sensory History: Reports: Hx Contacts or Glasses - reading glasses Denies: Hx Hearing Aid Opthamlomology History: Reports: Hx Contacts or Glasses - reading glasses Neurological History: Denies: Other Neuro Impairments/Disorders - Surgical History Surgery Procedure, Year, and Place: 2 c-sections, 1984, 1986, elijah hernia repair with gallbladder and tibal ligation CARPLE TUNNEL BILAT, 1996. sigmoidectomy, 09/2014, [facility]. 2016-COLPOSCOPY AND LOOP BIOPSY. 2004- BUNIONECTOMY LEFT FOOT Hx Anesthesia Reactions: Yes - SIGMOIDECTOMY-NAUSEA AND VOMITING Infectious Disease History: No Infectious Disease History: Denies: Hx Clostridium Difficile, Hx Hepatitis, Hx Human Immunodeficiency Virus (HIV), Hx Shingles, Hx Tuberculosis, Hx Known/Suspected VRE, Hx Known/ Suspected VRSA, History Other Infectious Disease, Traveled Outside the [place] in Last 30 Days - Family History Known Family History: Positive: Hypertension - Social History Occupation: Employed Full-time Lives: With Family Alcohol Use: Weekly Alcohol Amount: 2 per week Hx Substance Use: No Substance Use Type: Reports: None Hx Tobacco Use: Yes Smoking Status (MU): Heavy Every Day Tobacco Smoker Type: Cigarettes Amount Used/How Often: 1 PPD X 14 YEARS AGO Have You Smoked in the Last Year: Yes Review of Systems Constitutional: Negative Negative: Fever, Chills Positive: Other Negative: Chest Pain Respiratory: Negative Negative: Shortness Of Breath Gastrointestinal: Negative Negative: Abdominal Pain Genitourinary: Negative Negative: dysuria, frequency, flank pain, hematuria Positive: Other - Right low back pain Skin: Negative Positive: Paresthesia. Negative: Weakness, Numbness All Other Systems Reviewed And Are Negative: Yes Physical Exam Triage Information Reviewed: Yes Vital Signs On Initial Exam: Initial Vitals Temp Pulse Resp BP Pulse Ox 98 F 78 17 171/80 99 12/19/18 14:56 12/19/18 14:56 12/19/18 14:56 12/19/18 14:56 12/19/18 14:56 Vital Signs Reviewed: Yes Appearance: Positive: Pain Distress - Pt. sitting in chair, appears in pain but nontoxic. Skin: Positive: Warm, Dry Head/Face: Positive: Normal Head/Face Inspection Eyes: Positive: Normal, EOMI Neck: Positive: Supple Musculoskeletal: Positive: Normal, Strength/ROM Intact, Other - 5/5 strength in bilateral LEs with flexion and dorsiflexion. No midline lumbar tenderness. Pain over right SI joint. No CVA tenderness. Neurological: Positive: Normal, CN Intact II-III Psychiatric: Positive: Affect/Mood Appropriate Diagnostics - Vital Signs Vital Signs Temp Pulse Resp BP Pulse Ox 12/19/18 14:56 98 F 78 17 171/80 99 - Laboratory Lab Statement: Any lab studies that have been ordered have been reviewed, and results considered in the medical decision making process. Back Pain Course/Dx - Course Course Of Treatment: Pt. presenting for lumbar pain x 10 weeks. She is afebrile. She has no neurosensory deficits or evidence of cauda equina syndrome. Suspect sxs are secondary to sciatica. Did obtain xray given ongoing pain: Lumbar xray per radiology: IMPRESSION: 1. 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 2. MODERATE TO SEVERE DEGENERATIVE DISC DISEASE AT THE L4-L5 AND L5-S1 LEVELS. Will tx pt. with a short rx of lortab, prednisone, and flexeril. RO[employer]ING M[employer] reviewed and no red flags noted. Advised to schedule a close f.u apt. with PCP. To apply warm compresses and avoid heavy lifting. Discussed return precuations. Pt .understands and agrees with pain. - Diagnoses Differential Diagnosis/HQI/PQRI: Positive: Arthritis, Cauda Equina Syndrome, Compressive Cord Syndrome, Epidural Abscess, Fracture, Herniated Disc, Strain, Sprain Provider Diagnoses: Sciatica Discharge - Sign-Out/Discharge Documenting (check all that apply): Patient Departure Patient Received Moderate/Deep Sedation with Procedure: No - Discharge Plan Condition: Improved Disposition: HOME Prescriptions: Cyclobenzaprine TAB* [Flexeril 10 MG TAB*] 10 mg PO TID PRN #12 tab PRN Reason: Pain Hydrocodone/Acetaminophen [Hydrocodone/Acetaminophen 5-325 mg] 1 tab PO Q6H #12 tab MDD 4 predniSONE TAB* [Deltasone 20 MG TAB*] 40 mg PO DAILY #10 tab Patient Education Materials: Sciatica (ED), Degenerative Disc Disease (ED) Referrals: Mel Chairez MD [Primary Care Provider] - Additional Instructions: Call PCP tomorrow for a close follow up appointment Take medication as directed Start prednisone tomorrow Apply compress to back Gentle massage and stretching Return to ER for increased pain, leg numbness/weakness, bowel or bladder incontinence or retention - Billing Disposition and Condition Condition: IMPROVED Disposition: Home
[2018-12-19 18:10] VITALS: BP 168/85
== END 2018-12-19 17:50 | disposition home or self-care (01) ==
LOC: ED 14:50
DX: M54.41 Lumbago with sciatica, right side (principal); M43.17 Spondylolisthesis, lumbosacral region; M51.37 Other intervertebral disc degeneration, lumbosacral region; I25.119 Atherosclerotic heart disease of native coronary artery with unspecified angina pectoris; I10 Essential (primary) hypertension; K21.9 Gastro-esophageal reflux disease without esophagitis; Z88.3 Allergy status to other anti-infective agents; Z91.048 Other nonmedicinal substance allergy status; F17.210 Nicotine dependence, cigarettes, uncomplicated
CPT/HCPCS: 72110; 99283; A9270-GY; J7512

== ENCOUNTER 2019-11-28 18:28 | Emergency (ER) | payer SELFPAY ==
[2019-11-28 19:21] VITALS: BP 142/65
--- NOTE | 2019-11-28 19:45 | UC ---
Hand/Wrist HPI - HPI Summary HPI Summary: 64-year-old female comes in with a chief complaint of left thumb pain. Patient reports that while at work tonight lifting chains she felt like the joint at the base of her thumb was going in and out of place. She has pain with this. Reports that lifting chains has been hurting the base of her thumb for some time now. She has pain with range of motion and lifting chains. - History Of Current Complaint Chief Complaint: UCUpperExtremity Stated Complaint: THUMB INJURY Time Seen by Provider: 11/28/19 19:24 Pain Intensity: 7 - Allergies/Home Medications Allergies/Adverse Reactions: Allergies Allergy/AdvReac Type Severity Reaction Status Date / Time Adhesive Tape Allergy Rash Verified 11/28/19 19:21 bacitracin Allergy Itching Verified 11/28/19 19:21 [From Neosporin ([id number])] neomycin Allergy Itching Verified 11/28/19 19:21 [From Neosporin ([id number])] polymyxin B Allergy Itching Verified 11/28/19 19:21 [From Neosporin ([id number])] Home Medications: Home Medications Acetaminophen [Tylenol 8 Hour] 1,200 mg PO Q6HR 11/28/19 [History Confirmed 03/12] Cholesterol Med (No Statin) 1 tab PO DAILY 11/28/19 [History Confirmed 11/28/19] Pregabalin 25 mg CAP (*) [Lyrica 25 mg CAP (*)] 25 mg PO DAILY 11/28/19 [ History Confirmed 11/28/19] PMH/Surg Hx/FS Hx/Imm Hx Previously Healthy: Yes Endocrine History: Diabetes, Dyslipidemia Cardiovascular History: Cardiac Disease, Hypertension, Myocardial Infarction - Surgical History Surgical History: Yes Surgery Procedure, Year, and Place: 2 c-sections, 1984, 1986, elijah hernia repair with gallbladder and tibal ligation CARPLE TUNNEL BILAT, 1996. sigmoidectomy, 09/2014, [facility]. 2017-COLPOSCOPY AND LOOP BIOPSY. 2004- BUNIONECTOMY LEFT FOOT - Family History Known Family History: Positive: Hypertension - Social History Alcohol Use: Weekly Alcohol Amount: 2 per week Substance Use Type: None Smoking Status (MU): Heavy Every Day Tobacco Smoker Type: Cigarettes Amount Used/How Often: 1 PPD X 14 YEARS AGO Have You Smoked in the Last Year: Yes - trying to quit now When Did the Patient Quit Smoking/Using Tobacco: 5 days ago Household Exposure Type: Cigarettes - Immunization History Most Recent Influenza Vaccination: unknown Most Recent Pneumonia Vaccination: none Review of Systems All Other Systems Reviewed And Are Negative: Yes Constitutional: Positive: Negative Skin: Positive: Negative Eyes: Positive: Negative ENT: Positive: Negative Respiratory: Positive: Negative Cardiovascular: Positive: Negative Gastrointestinal: Positive: Negative Motor: Positive: Other - SEE HPI Neurovascular: Positive: Negative Musculoskeletal: Positive: Other: - SEE HPI Neurological: Positive: Negative Psychological: Positive: Negative Is Patient Immunocompromised?: No Physical Exam Triage Information Reviewed: Yes Appearance: Well-Appearing, Well-Nourished, Pain Distress - MILD WITH ROM AND EXAM OF LEFT THUMB Vital Signs: Initial Vital Signs Temp 98.5 F 11/28/19 19:14 Pulse 67 11/28/19 19:14 Resp 16 11/28/19 19:14 BP 142/65 11/28/19 19:14 Pulse Ox 98 11/28/19 19:14 Vital Signs Reviewed: Yes Eye Exam: Normal Eyes: Positive: Conjunctiva Clear Neck: Positive: Supple Respiratory: Positive: No respiratory distress Musculoskeletal: Positive: Other: - Patient is tender to palpation at the base of the left first metacarpal. She has normal sensation in the thumb. Normal capillary refill. She has full range of motion however she gets pain in the first CMC joint with the range of motion. Neurological: Positive: Alert Psychological: Positive: Age Appropriate Behavior Skin Exam: Normal Hand/Wrist Course/Dx - Course Course Of Treatment: I discussed the x-rays with the patient. 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 Do not see any fracture. Patient was placed in thumb spica splint by nursing patient neurovascular intact after placement of the thumb spica splint. Plan is ice anti-inflammatories protection limited use of the left hand and follow-up with occupational medicine. - Differential Dx/Diagnosis Provider Diagnosis: Pain of left thumb Discharge ED - Sign-Out/Discharge Documenting (check all that apply): Patient Departure All imaging exams completed and their final reports reviewed: No - Discharge Plan Condition: Stable Disposition: HOME Patient Education Materials: Finger Sprain (ED) Forms: *Work Release Referrals: Mel Chairez MD [Primary Care Provider] - Manish Gutierrez MD [Medical Doctor] - Additional Instructions: FOLLOW UP WITH OCCUPATIONAL MEDICINE. GET REEVALUATED SOONER IF NOT IMPROVED OR WORSE OR ANY QUESTIONS OR CONCERNS. - Billing Disposition and Condition Condition: STABLE Disposition: Home
--- NOTE | 2019-11-29 14:22 | UC ---
- Progress Note Progress Note: Progress note: X-ray negative for fracture of the wrist and thumb. No change in treatment. Heraclio Molina M.D. Course/Dx - Diagnoses Provider Diagnoses: Pain of left thumb Discharge ED - Sign-Out/Discharge Documenting (check all that apply): Post-Discharge Follow Up All imaging exams completed and their final reports reviewed: Yes - Discharge Plan Condition: Stable Disposition: HOME Patient Education Materials: Finger Sprain (ED) Forms: *Work Release Referrals: Manish Gutierrez MD [Medical Doctor] - Mel Chairez MD [Primary Care Provider] - Additional Instructions: FOLLOW UP WITH OCCUPATIONAL MEDICINE. GET REEVALUATED SOONER IF NOT IMPROVED OR WORSE OR ANY QUESTIONS OR CONCERNS. - Billing Disposition and Condition Condition: STABLE Disposition: Home
== END 2019-11-28 19:53 | disposition home or self-care (01) ==
LOC: UCEAST 18:28
DX: M79.645 Pain in left finger(s) (principal); M89.44 Other hypertrophic osteoarthropathy, hand; E11.9 Type 2 diabetes mellitus without complications; E78.5 Hyperlipidemia, unspecified; I25.2 Old myocardial infarction; I10 Essential (primary) hypertension; Z88.1 Allergy status to other antibiotic agents; Z91.048 Other nonmedicinal substance allergy status; Z87.891 Personal history of nicotine dependence
CPT/HCPCS: 99212; G0463

== ENCOUNTER 2020-01-19 11:21 | Emergency (ER) | payer OTHER ==
[2020-01-19] MEDS ORDERED: Morphine 4 MG/ML VIAL (1 ml) 4 MG/ML VIAL IV ONE (11:39)
[2020-01-19] MEDS ORDERED: Ondansetron INJ* 2 MG/ML VIAL IV ONE (11:39)
--- NOTE | 2020-01-19 11:41 | ED ---
GI/ HPI - HPI Summary HPI Summary: 64 year old F presenting to [facility] with a chief complaint of diffuse abdominal pain and constipation since 3.5 days ago. The patient rates the pain 7/10 in severity. Symptoms aggravated by nothing. Symptoms alleviated by nothing. Patient reports a history of diverticulitis and a sigmoidectomy. Patient denies any diarrhea, vomiting, nausea, dysuria or fever. Medication list reviewed. Allergy list reviewed. - History of Current Complaint Chief Complaint: EDAbdPain Time Seen by Provider: 01/19/20 11:29 Stated Complaint: ABD PAIN PER PT Hx Obtained From: Patient Onset/Duration: Started Days Ago Timing: Constant Current Severity: Moderate Pain Intensity: 7 Location of Pain: Diffuse Associated Signs and Symptoms: Positive: Constipation. Negative: Nausea, Vomiting, Diarrhea, Fever, Dysuria Aggravating Factor(s): Nothing Alleviating Factor(s): Nothing - Additional Pertinent History Primary Care Physician: ADRIANNA - Allergy/Home Medications Allergies/Adverse Reactions: Allergies Allergy/AdvReac Type Severity Reaction Status Date / Time Adhesive Tape Allergy Rash Verified 01/19/20 11:27 bacitracin Allergy Itching Verified 01/19/20 11:27 [From Neosporin ([id number])] neomycin Allergy Itching Verified 01/19/20 11:27 [From Neosporin ([id number])] polymyxin B Allergy Itching Verified 01/19/20 11:27 [From Neosporin ([id number])] Home Medications: Home Medications Fluticasone NASAL SPRAY 50MCG* [Flonase NASAL SPRAY 50MCG*] 2 spray BOTH NARES DAILY PRN 01/06/18 [History Confirmed 11/28/19] Lisinopril TAB* [Prinivil TAB 10 MG*] 40 mg PO DAILY 04/06/18 [History Confirmed 11/28/19] Tiotropium CAPSULE (NF) [Spiriva CAPSULE (NF)] 1 cap.inh INH DAILY 04/06/18 [ History Confirmed 11/28/19] amLODIPine TAB* [Norvasc 5 mg TAB*] 5 mg PO DAILY 04/06/18 [History Confirmed ] Aspirin EC TAB* [Ecotrin EC Low Dose 81 MG*] 81 mg PO DAILY #30 tab.ec 04/11/18 [Rx Confirmed 11/28/19] Metoprolol Succinate XL TAB* [Toprol XL TAB*] 50 mg PO BID #60 tab.xl 04/11/18 [ Rx Confirmed 11/28/19] Nitroglycerin TAB 0.4 MG* 0.4 mg SL Q5M PRN #30 tab 04/11/18 [Rx Confirmed 11/28] Hydrocodone/Acetaminophen [Hydrocodone/Acetaminophen 5-325 mg] 1 tab PO Q6H #12 tab MDD 4 12/19/18 [Rx Confirmed 11/28/19] Acetaminophen [Tylenol 8 Hour] 1,200 mg PO Q6HR 11/28/19 [History Confirmed 03/12] Cholesterol Med (No Statin) 1 tab PO DAILY 11/28/19 [History Confirmed 11/28/19] Pregabalin 25 mg CAP (*) [Lyrica 25 mg CAP (*)] 25 mg PO DAILY 11/28/19 [ History Confirmed 11/28/19] PMH/Surg Hx/FS Hx/Imm Hx Endocrine/Hematology History: Denies: Hx Diabetes, Hx Thyroid Disease Cardiovascular History: Reports: Hx Angina, Hx Coronary Artery Disease, Hx Hypertension - ON MEDICATION FOR, Hx Myocardial Infarction Denies: Hx Congestive Heart Failure, Hx Pacemaker/ICD, Other Cardiovascular Problems/Disorders Respiratory History: Denies: Hx Asthma, Hx Chronic Obstructive Pulmonary Disease (COPD), Other Respiratory Problems/Disorders GI History: Reports: Hx Gastroesophageal Reflux Disease - OCCASIONALLY-PRN PREVACID, Other GI Disorders - HX OF DIVERTICULITIS Denies: Hx Ulcer History: Denies: Hx Renal Disease Musculoskeletal History: Reports: Hx Arthritis - thumbs and shoulders and hip Sensory History: Reports: Hx Contacts or Glasses - reading glasses Denies: Hx Hearing Aid Opthamlomology History: Reports: Hx Contacts or Glasses - reading glasses Neurological History: Denies: Other Neuro Impairments/Disorders - Surgical History Surgery Procedure, Year, and Place: 2 c-sections, 1984, 1986, elijah hernia repair with gallbladder and tibal ligation CARPLE TUNNEL BILAT, 1996. sigmoidectomy, 09/2014, [facility]. 2017-COLPOSCOPY AND LOOP BIOPSY. 2005- BUNIONECTOMY LEFT FOOT Hx Anesthesia Reactions: Yes - SIGMOIDECTOMY-NAUSEA AND VOMITING Infectious Disease History: No Infectious Disease History: Denies: Hx Clostridium Difficile, Hx Hepatitis, Hx Human Immunodeficiency Virus (HIV), Hx Shingles, Hx Tuberculosis, Hx Known/Suspected VRE, Hx Known/ Suspected VRSA, History Other Infectious Disease, Traveled Outside the [place] in Last 30 Days - Family History Known Family History: Positive: Hypertension - Social History Alcohol Use: Weekly Alcohol Amount: 2 per week Hx Substance Use: No Substance Use Type: Reports: None Hx Tobacco Use: Yes Smoking Status (MU): Heavy Every Day Tobacco Smoker Type: Cigarettes Amount Used/How Often: 1 PPD X 14 YEARS AGO Have You Smoked in the Last Year: Yes - trying to quit now Review of Systems Negative: Fever Positive: Abdominal Pain, Other - Constipation. Negative: Vomiting, Diarrhea, Nausea Negative: dysuria All Other Systems Reviewed And Are Negative: Yes Physical Exam - Summary Physical Exam Summary: Constitutional: Well-developed, Well-nourished, Alert. (-) Distressed Skin: Warm, Dry HENT: Normocephalic; Atraumatic Eyes: Conjunctiva normal Neck: Musculoskeletal ROM normal neck. (-) JVD, (-) Stridor, (-) Nuchal rigidity Cardio: Rhythm regular, rate normal, Heart sounds normal; Intact distal pulses; Radial pulses are 2+ and symmetric. (-) Murmur Pulmonary/Chest wall: Effort normal. (-) Respiratory distress, (-) Wheezes, (-) Rales Abd: Soft, bilateral lower quadrant tenderness, (-) Distension, (-) Guarding, (- ) Rebound Musculoskeletal: (-) Edema Lymph: (-) Cervical adenopathy Neuro: Alert, Oriented x3 Psych: Mood and affect Normal Triage Information Reviewed: Yes Vital Signs On Initial Exam: Initial Vitals Temp Pulse Resp BP Pulse Ox 98.6 F 79 19 163/77 95 01/19/20 11:25 01/19/20 11:25 01/19/20 11:25 01/19/20 11:25 01/19/20 11:25 Vital Signs Reviewed: Yes Procedures - Sedation Patient Received Moderate/Deep Sedation with Procedure: No Diagnostics - Vital Signs Vital Signs Temp Pulse Resp BP Pulse Ox 01/19/20 11:25 98.6 F 79 19 163/77 95 - Laboratory Result Diagrams: 01/19/20 11:56 01/19/20 11:56 Lab Statement: Any lab studies that have been ordered have been reviewed, and results considered in the medical decision making process. - CT Abdomen/Pelvis CT CT Interpretation Completed By: Radiologist Summary of CT Findings: Diverticulosis of the sigmoid colon without definite evidence of. diverticulitis. No abnormal masses or fluid collections are noted. Small periumbilical. hernia containing omentum is noted. ED physician has reviewed this report. GIGU Course/Dx - Course Course Of Treatment: 64 y/o F w hx diverticulitis, multiple abdominal surgeries p/w abdominal pain and constipation. - well appearing, lower quadrant tenderness bilaterally. No urinary symptoms. CT w/o abnormality. Tolerating PO. At this time unclear cause of pain but stable for discharge. - Diagnoses Provider Diagnoses: Abdominal pain Discharge ED - Sign-Out/Discharge Documenting (check all that apply): Patient Departure - Discharge Plan Condition: Stable Disposition: HOME Patient Education Materials: Abdominal Pain (ED) Referrals: Mel Chairez MD [Primary Care Provider] - Additional Instructions: You were seen in the emergency department for abdominal pain. Your CT scan did not show any evidence of infection or diverticulitis. If any studies were not completed at the time of discharge you will be called with the relevant results. Please follow up with your primary care doctor in next 2-3 days and return to emergency department for worsening pain, inability to drink, fevers,or concerning symptoms. It was a pleasure taking care of you today. - Billing Disposition and Condition Condition: STABLE Disposition: Home - Attestation Statements Document Initiated by Nida: Yes Documenting Scribe: Rosalba Dickey Provider For Whom Nida is Documenting (Include Credential): Indio Holland MD Scribe Attestation: I, Rosalba Dickey, scribed for Indio Holland MD on 01/19/20 at 1523. Scribe Documentation Reviewed: Yes Provider Attestation: The documentation as recorded by the Rosalba iraheta accurately reflects the service I personally performed and the decisions made by me, Indio Holland MD Status of Scribsam Document: Viewed
[2020-01-19 12:10] LABS: ABS Basophils 0.1 10^3/ul (0-0.2); ABS Eosinophils 0.3 10^3/ul (0-0.6); ABS Lymphocytes 2.4 10^3/ul (1.0-4.8); ABS Monocytes 0.8 10^3/ul (0-0.8); ABS Neutrophils 6.8 10^3/ul (1.5-7.7); Eosinophil % 2.7 %; Hematocrit 42 % (35-47); Hemoglobin 13.9 g/dL (12.0-16.0); Lymphocyte % 23.3 %; Mean Corpuscular HGB Conc 33 g/dL (31-36); Mean Corpuscular Hemoglobin 28 pg (27-31); Mean Corpuscular Volume 86 fL (80-97); Platelet Count 252 10^3/uL (150-450); Red Cell Distribution Width 15 % (10-15); White Blood Count 10.4 10^3/uL (3.5-10.8)
--- OUTSIDE RECORDS SUMMARY | 2020-01-19 12:18 | XMS REPORT | Summary of Care ---
:1955 Author Organization [facility] Address [address] [address] Care Team Providers Name Role Phone Mel Chairez Primary Care Provider Reason for Referral Refer to Department Only (Routine) Status Reason Specialty Diagnoses / Referred By Referred To Procedures Contact Contact Pending Review PODIATRY Diagnoses Chronic pain of both feet Mel Chaire[place] [address] Refer to Department Only (Routine) Status Reason Specialty Diagnoses / Procedures Referred By Referred To Contact Contact Pending Orthopedics Diagnoses Recurrent dislocation of left metacarpophalangeal joint Joslyn Chairez [place] [address] Reason for Visit Reason Comments Physical annaul, Encounter Details Date Type Department Care Team Description 01/03/2020 Office Visit Ryder Natarajan female exam with routine gynecological exam (Primary Dx); Practice MD Mel Recurrent dislocation of left metacarpophalangeal joint; [address] [facility] Chronic pain of both feet; [place] [address] [place], [place] Mixed hyperlipidemia; [phone] [id number] Borderline diabetes [phone] Allergies Active Allergy Reactions Severity Noted Date Comments Rosuvastatin Calcium Musculoskeletal 12/08/2016 documented as of this encounter (statuses as of 01/03/2020) Medications Medication Sig Dispensed Refills Start End Date Status Date nitroglycerin Place 0.4 mg 0 Active (NITROSTAT) 0.4 MG under tongue Sublingual SL Tab EVERY FIVE MINUTES NEEDED for chest pain. aspirin (ECOTRIN) Take 1 Tab by 90 Tab 1 Active 81 MG Oral Tab EC mouth DAILY. 9 amLodipine Take 1 Tab by 90 Tab 1 Active (NORVASC) 2.5 MG mouth DAILY. 9 Oral Part of 7.5 mg TabIndications: once a day dose Essential hypertension amLodipine Take 1 Tab by 90 Tab 1 Active (NORVASC) 5 MG Oral mouth DAILY. 9 TabIndications: Part of 7.5 mg Essential PO QD dose hypertension ezetimibe (ZETIA) Take 1 Tab by 90 Tab 1 Active 10 MG Oral mouth DAILY. 9 TabIndications: Other hyperlipidemia fluticasone [place] 2 Sprays 1 Bottle 5 Active (FLONASE) 50 in nose DAILY. 9 MCG/ACT Nasal SuspensionIndicatio ns: ETD (Eustachian tube dysfunction), bilateral lisinopril TAKE 1 TABLET 90 Tab 1 Active (PRINIVIL, ZESTRIL) DAILY 0 40 MG Oral Tab metoprolol TAKE 1 TABLET 180 Tab 1 Active succinate (TOPROL TWICE A DAY 0 XL) 50 MG Oral TABLET SR 24 HR Tiotropium [place] Take 2 Puffs by 3 Inhaler 1 Active Monohydrate inhalation 0 (SPIRIVA RESPIMAT) DAILY. 1.25 MCG/ACT Inhalation Aero Soln Tiotropium [place] Take 2 Puffs by 3 Inhaler 1 01/03/20 Discontinued Monohydrate inhalation 8 20 (Reorder) (SPIRIVA RESPIMAT) DAILY. 1.25 MCG/ACT Inhalation Aero Soln pregabalin (LYRICA) Take 1 Cap by 60 Cap 1 01/03/20 Discontinued 50 MG Oral Cap mouth TWICE 9 20 (Other) DAILY. Max Daily Amount: 100 mg. documented as of this encounter (statuses as of 01/03/2020) Active Problems Problem Noted Date Anxiety and depression 07/21/2018 Smoking 02/17/2015 Diverticulitis 03/08/2014 Hypertension 03/04/2014 BMI 39.0-39.9,adult 05/31/2013 Finger pain 05/30/2013 GERD (gastroesophageal reflux disease) 03/01/2008 Hyperlipidemia 03/01/2008 DJD (degenerative joint disease) 03/01/2008 History of CTS (Carpal Tunnel Syndrome) 03/01/2008 Overview: Patient had Bilateral Carpal Tunnel release surgery Chronic sinusitis 03/01/2008 History of Persistant Vertigo with Hearing Impairment 03/01/2008 Diverticulosis 03/01/2008 CAD (coronary artery disease) Overview: Cath 04/10/18 - 40-45% ostium disease and 50-55% midportion LAD documented as of this encounter (statuses as of 01/03/2020) Immunizations Name Administration Dates Next Due Influenza (IM) Preservative Free 07/30/2019, 12/05/2017, 10/26/2012 TDAP Vaccine 03/11/2009 documented as of this encounter Social History Tobacco Use Types Packs/Day Years Used Date Current Every Day Smoker Cigarettes 1 20 Smokeless Tobacco: Never Used Alcohol Use Drinks/Week oz/Week Comments Yes rare Sex Assigned at Date Recorded Not on file documented as of this encounter Last Filed Vital Signs Vital Sign Reading Time Taken Comments Blood Pressure 144/70 01/03/2020 11:31 AM EDT Pulse 73 01/03/2020 11:31 AM EDT Temperature 37.1 01/03/2020 11:31 AM C (98.8 EDT F) Respiratory Rate - - Oxygen Saturation 98% 01/03/2020 11:31 AM EDT Inhaled Oxygen Concentration - - Weight 114.2 kg (251 lb 12.8 oz) 01/03/2020 11:31 AM EDT Height 162.6 cm (5' 4") 01/03/2020 11:31 AM EDT Body Mass Index 43.22 01/03/2020 11:31 AM EDT documented in this encounter Patient Instructions Patient InstructionsMel Chairez MD - 01/03/2020 11:20 AM EDT1. Schedule appointment with [facility] and hand surgeon 2. Schedule fasting blood tests in 6 months 3. Follow up after the tests and as needed documented in this encounter Progress Notes Mel Chairez MD - 01/03/2020 11:20 AM EDT Patient: Priyanka Cervantes Date of Service: 01/03/2020 Subjective: Priyanka Cervantes is a 64-y.o. female who presents for Chief Complaint Patient presents with ? Physical annaul, The patient complains of bilateral foot pain for several months. Patient reports: History of injury: no. Spend a lot of time standing at work Pain: Location: lateral and dorsal Exacerbating factors: walking and standing after rest Neurological complaints: none Vascular complaints: none Ambulation: moderate difficulty The patient complains of bilateral thumb pain for several months. Recurrent dislocation of 1st MCP joint Patient reports: History of injury: none. Often has episodes of dislocation with chain pulling at work Pain: Location: 1st MP joint Exacerbating factors: activity Neurological complaints: none Past Medical History: Diagnosis Date ? CAD (coronary artery disease) Cath 04/10/18 - 40-45% ostium disease and 50-55% midportion LAD ? Chronic sinusitis 03/01/2008 ? Diverticulitis of rectosigmoid 5 episodes w/ one hospitalization over past year ([id number]). S/P sigmoidectomy 09/2014 ? DJD (degenerative joint disease) 03/01/2008 ? GERD (gastroesophageal reflux disease) 03/01/2008 ? History of CTS (Carpal Tunnel Syndrome) 03/01/2008 Patient had Bilateral Carpal Tunnel release surgery ? Hyperlipidemia 03/01/2008 ? Hypertension ? Obesity ? Recurrent ventral incisional hernia 04/[address] S/P primary repair 09/2014 ? Vertigo Outpatient Medications as of 01/03/2020 Medication Sig Dispense Refill ? amLodipine (NORVASC) 2.5 MG Oral Tab Take 1 Tab by mouth DAILY. Part of 7.5 mg once a day dose 90 Tab 1 ? amLodipine (NORVASC) 5 MG Oral Tab Take 1 Tab by mouth DAILY. Part of 7.5 mg PO QD dose 90 Tab 1 ? aspirin (ECOTRIN) 81 MG Oral Tab EC Take 1 Tab by mouth DAILY. 90 Tab 1 ? ezetimibe (ZETIA) 10 MG Oral Tab Take 1 Tab by mouth DAILY. 90 Tab 1 ? fluticasone (FLONASE) 50 MCG/ACT Nasal Suspension [place] 2 Sprays in nose DAILY. 1 Bottle 5 ? lisinopril (PRINIVIL, ZESTRIL) 40 MG Oral Tab TAKE 1 TABLET DAILY 90 Tab 1 ? metoprolol succinate (TOPROL XL) 50 MG Oral TABLET SR 24 HR TAKE 1 TABLET TWICE A DAY 180 Tab 1 ? nitroglycerin (NITROSTAT) 0.4 MG Sublingual SL Tab Place 0.4 mg under tongue EVERY FIVE MINUTES NEEDED for chest pain. No current facility-administered medications on file as of 01/03/2020. Allergies Allergen Reactions ? Crestor [Rosuvastatin Calcium] Musculoskeletal Review of Systems: All remaining review of systems was negative. Objective: BP 144/70 (BP Location: Left arm, Patient Position: Sitting) Pulse 73 Temp 98.8 F (37.1 C) Ht 5' 4" (1.626 m) Wt 251 lb 12.8 oz (114.2 kg) LMP SpO2 98% BMI 43.22 kg/m2 GENERAL: alert, no distress HEAD: normocephalic, without obvious abnormality EYES: conjunctivae/corneas clear. Pupils equal, round, reactive to light. Equal ocular movements intact. EARS: normal tympanic membranes and external ear canals, bilaterally NOSE: Nares normal. Septum midline. Mucosa normal. No drainage or sinus tenderness. THROAT: lips, mucosa, and tongue normal: teeth and gums normal NECK: supple, symmetrical, trachea midline, no adenopathy and thyroid: not enlarged, symmetric, notenderness/mass/nodules LUNGS: clear to auscultation bilaterally BREASTS: normal appearance, no masses or tenderness HEART: regular rate and rhythm, S1, S2 normal, no murmur, click, rub or gallop ABDOMEN: soft, non-tender. Bowel sounds normal. No masses, no organomegaly PELVIC: Pelvic exam: external genitalia normal, urethra without abnormality or discharge. Speculum exam: vagina normal without discharge, cervix - normal. PAP done Bimanual exam: uterus normal size, shape, and consistency, no adnexal masses or tenderness. EXTREMITIES: varicose veins noted A bilateral foot exam was performed. Skin: normal Swelling: none Warmth: no warmth Tenderness: mild at lateral metatarsal area, hammer toes on the R Stability: stable to testing Neurological Exam: normal Vascular Exam: normal A bilateral hand exam was performed. SKIN: normal SWELLING: none WARMTH: no warmth TENDERNESS: moderate and maximal at MCP joint 1 ROM: limited by pain PULSES: 2+ and symmetric SKIN: Skin color, texture, turgor normal. No rashes or suspicious lesions. LYMPH NODES: cervical, supraclavicular, and axillary nodes normal. NEUROLOGIC: Grossly normal HG1AC - stable, CMP - elevated sugar Component Latest Ref Rng & Units 12/24/2019 12/24/2019 10:41 AM 10:41 AM Sodium 134 - 145 mmol/L 139 Potassium 3.5 - 5.1 mmol/L 4.6 Chloride 98 - 107 mmol/L 102 CO2 22 - 30 mmol/L 31 (H) Calcium 8.3 - 10.1 mg/dl 9.7 Albumin 3.5 - 5.0 g/dl 4.2 BUN 7 - 17 mg/dl 21 (H) Creatinine 0.7 - 1.2 mg/dl 0.7 Glucose (Lab) 70 - 99 mg/dl 124 (H) Protein,Total 6.3 - 8.2 g/dl 7.4 Total Bilirubin 0.0 - 1.1 MG/DL 0.4 AST 15 - 46 U/L 27 ALT 9 - 52 U/L 24 ALKALINE PHOSPHATASE 40 - 150 U/L 74 eGFR See Interpretation Below ml/min/1.73ml Sq >60 BUN/Creatinine Ratio 6 - 22 RATIO 30 (H) Anion Gap 3 - 11 mmol/L 6 A/G Ratio 0.8 - 2.0 ratio 1.3 Glycohemoglobin - POCT <=5.6 % 6.6 (H) Patient advised on tests results ICD-9-CM ICD-10-CM 1. Well female exam with routine gynecological exam V72.31 Z01.419 PAP SMEAR THINPREP W/ REFLEX HPV 2. Recurrent dislocation of left metacarpophalangeal joint 718.34 M24.442 REFER TO HAND SURGERY 3. Chronic pain of both feet 729.5 M79.671 REFER TO PODIATRY 338.29 G89.29 M79.672 4. Mixed hyperlipidemia 272.2 E78.2 LIPID PROFILE 5. Borderline diabetes 790.29 R73.03 COMPREHENSIVE METABOLIC PANEL GLYCOHEMOGLOBIN A1C Patient Instructions 1. Schedule appointment with [facility] and hand surgeon 2. Schedule fasting blood tests in 6 months 3. Follow up after the tests and as needed Follow up in 2 weeks for BP check and TDap Author: Mel Chairez MD documented in this encounter Plan of Treatment Date Type Specialty Care Team Description 01/17/2020 Nurse/Clinical Support Internal Medicine 07/01/2020 Lab Internal Medicine 07/08/2020 Office Visit Family [facility] Mel Chairez MD [address] [place] [address] [phone] Name Type Priority Associated Diagnoses Order Schedule PAP SMEAR THINPREP W/ Lab Routine Well female exam with Ordered: 01/03/2020 REFLEX HPV routine gynecological exam COMPREHENSIVE METABOLIC Lab Routine Borderline diabetes Expected: PANEL 01/03/2020 (Approximate), Expires: 01/02/2021 LIPID PROFILE Lab Routine Mixed hyperlipidemia Expected: 01/03/2020 (Approximate), Expires: 01/02/2021 GLYCOHEMOGLOBIN A1C Lab Routine Borderline diabetes Expected: 01/03/2020 (Approximate), Expires: 01/02/2021 Name Type Priority Associated Diagnoses Order Schedule REFER TO HAND Referral Routine Recurrent dislocation of left Expected: SURGERY metacarpophalangeal joint 01/03/2020, Expires: 01/02/2021 REFER TO PODIATRY Referral Routine Chronic pain of both feet Expected: 01/03/2020, Expires: 01/02/2021 Health Maintenance Due Date Last Done Comments CT Colonography 1955 FIT-DNA 1955 FIT/FOBT 1955 Sigmoidoscopy 1955 PNEUMOCOCCAL 0-64 YRS (1 of 1961 1 - PPSV23) DTaP/Tdap/Td Vaccines (2 - 03/11/2019 03/11/2009 Tdap) PAP SMEAR 10/28/2019 10/28/2016, 10/28/2016, 10/28/2016, Additional history exists MAMMOGRAM (SCREENING) 02/02/2020 02/01/2019, 12/01/2017, 11/11/2016, Additional history exists LIPID DISORDER SCREENING 05/28/2020 05/28/2019, 02/01/2019, 12/01/2017, Additional history exists DEPRESSION SCREENING 07/30/2020 07/30/2019 DIABETES SCREENING 12/23/2020 12/24/2019, 12/24/2019, 05/28/2019, Additional history exists ZOSTER IMMUNIZATION SERIES 01/02/2021 Postponed from (1 of 2) 2005 (Other) Colonoscopy 10/07/2025 10/07/2015, 05/29/2013, 04/02/2003 Colonoscopy 10/07/2025 10/07/2015, 05/29/2013 Colorectal Cancer Screening 10/07/2025 INFLUENZA VACCINE Completed 07/30/2019, 12/05/2017, 10/26/2012 HEPATITIS A IMMUNIZATION Aged Out No longer eligible SERIES based on patient's age to complete this topic HPV IMMUNIZATION SERIES Aged Out No longer eligible based on patient's age to complete this topic MENINGOCOCCAL VACCINE IMM Aged Out No longer eligible based on patient's age to complete this topic documented as of this encounter Goals Goal Patient Goal Associated Recent Patient-Stated? Author Type Problems Progress Blood Pressure Blood Pressure Hypertension 144/70 No Contreras, < 140/90 (01/03/2020 Mel, 11:31 AM EDT) Note: Hypertension Care Plan Based on the patient's clinical history and according to JNC 8 guidelines target blood pressure goal is less than 140/90. Based on the patient's last blood pressure of BP: 158/90 mmHg the patient is at above goal. As your provider, it is important that I advise you regarding: your current medications and help you with any challenges you may face taking your medications as directed (ex. instructions, cost, side effects, and interactions). Important lifestyle changes: exercise, weight reduction, dietary sodium reduction and smoking cessation your clinical goals and how you can achieve success: weight reduction, exercise plan and smoking cessation medication management: adjusted medications as appropriate patient education/self-management tools provided: Yes To successfully manage my Hypertension I will: monitor my blood pressure daily, understanding that my goal is less than 140/ 90 per my healthcare provider's recommendation. I will schedule an appointment with my provider if consistent abnormal readings greater than 160/100. take medications every day as prescribed by my healthcare provider and if unable to take them I will discuss with my provider. monitor for symptoms of chest pain, chest tightness/pressure, irregular heartbeat, persistent dizziness, radiating arm pain, and neck or jaw pain. If any of these symptoms are noticed I will seek medical attention immediately by calling 911 exercise/walk 30 minutes 5 day(s) per week. If I experience chest pain, chest tightness, or shortness of breath, I will seek medical attention immediately. follow a diet rich in fruits, vegetables, and low-fat dairy products with reduced content of saturated & total fat. I will reduce my sodium intake daily. An example is the DASH diet. To obtain more information please refer to the DASH Eating Plan listed in Educational Resources. record my blood pressure results. Ashly is safe and secure way for you to do this in your medical record online. try to obtain an ideal body weight. My recent weight was Weight: 233 lb ( 105.688 kg). My weight loss goal for my next office visit is 225. limit alcohol consumption. For men two drinks per day and women one drink per day. if currently smoking, will discuss how to quit smoking with my healthcare provider and work towards quitting. Educational Resources: National Heart, Lung, & Blood [place] http://nhlbi.nih.gov/hbp/index.html The DASH Diet Eating Plan http://www.nhlbi.nih.gov/health/health-topics/ topics/dash/ Academy of Nutrition & DIetetics http://eatright.org National Smoking Cessation Site http://smokefree.gov Blood Pressure < Blood Pressure 144/70 (01/03/2020 No Mel Chairez, 140/90 11:31 AM EDT) Note: This is an individualized treatment (blood pressure) goal for Priyanka Cervantes: Displayed above (on the left) is your goal for blood pressure control. Your most recent blood pressure is also shown above, on the right. You should try to achieve blood pressures that are lower than your goal listed above (on the left). Depression screen (PHQ-9) total score < 5 Depression No Mel Chairez MD Note: This is an individualized treatment (depression) goal for Priyanka Cervantes: Displayed above is your goal for a depression screening (PHQ-9) score that would indicate good control of your depression. Lifestyle - Current Smoker Lifestyle Hypertension No Mel Chairez MD Note: Smoking Cessation Plan Discussed smoking cessation with patient. Patient readiness to quit:no Discussed smoking cessation plan according to AHRQ guidelines:counseled patient on the risks of tobacco use and advised patient to quit and offered support My Quit Plan: My quit date is set for Notify my friends, family, and co-workers about decision to quit. Will ask for their support and understanding Remove tobacco products from my environment. I will ask people not to smoke around me or in my home. I will anticipate challenges at the beginning and will try not to be discouraged. To remember the benefits of quitting such as improved health, feeling better about myself, saving money, etc. Reducing stressors and avoiding triggers are essential keys to my success Finding ways to distract myself when I have the urge to smoke such as taking a walk, reading, playing a board game, putting together a puzzle, etc. Taking medications as my healthcare provider has advised to help alleviate the urge to smoke. If I am unable to take the medication, I will discuss further with my healthcare provider. Recognize reasons for relapse in my past attempts. What did and did not work for me Consider connecting with group, individual, or telephone counseling Weight loss vs. 18 mo Lifestyle 0 (01/03/2020 11:31 AM No Mel Chairez MD max (lbs) >= 10 EDT) Note: This is an individualized lifestyle goal for Priyankasonu Cervantes: Your body mass index (BMI) is more than 30. You should lose weight. A reasonable starting goal is to lose 10 pounds. Displayed above is how many pounds you have lost thus far towards your 10 pound weight loss goal. Keep a regular sleep schedule Lifestyle Mel Rutledge MD Note: This is an individualized lifestyle goal for Priyanka Cervantes: Please maintain a regular sleep schedule. This may help with some symptoms of depression. Take all prescribed medications as Self-management Mel Rutledge MD directed Note: This is an individualized self-management goal for Priyanka Bonine Cervantes: Please take all prescribed medications as directed. 1. Do not skip doses. If you cannot afford your medications, talk with your doctor. 2. Use a pill reminder system such as a pill box if needed. Your pharmacist can help you with this. 3. Contact your Pharmacy 5 days before your medication runs out. If you cannot take your medications for any reasons, talk with your doctor. 4. Please bring all of your medication bottles and inhalers (or a list of all your medications/inhalers) with you to every visit. Potential barriers to meeting all of your care plan goals will continue to be addressed on an ongoing basis. documented as of this encounter Results Not on filedocumented in this encounter Visit Diagnoses Diagnosis Well female exam with routine gynecological exam Routine gynecological examination Recurrent dislocation of left metacarpophalangeal joint Chronic pain of both feet Mixed hyperlipidemia Borderline diabetes Other abnormal glucose documented in this encounter Insurance Payer Benefit Plan / Subscriber ID Effective Dates Phone Address Type Group [employer] [facility] [id number] 2008-Present [employer] Guarantor Name Account Type Relation to Date of Phone Billing Address Patient BillyPriyanka Personal/Famil 1955 [id number] [place] [address] 0 (Work) documented as of this encounter
[2020-01-19 12:30] LABS: Albumin 4.2 g/dL (3.2-5.2); Albumin/Globulin Ratio 1.4 (1-3); BUN/Creatinine Ratio 21.6 (8-20); Calcium 9.7 mg/dL (8.6-10.3); EGFR African American 95.6 (>60); Total Bilirubin 0.4 mg/dL (0.2-1.0); Total Protein 7.2 g/dL (6.4-8.9)
[2020-01-19] MEDS ORDERED: Metoclopramide IV* 5 MG/ML 2 ML VIAL IV ONE (13:01)
[2020-01-19] MEDS ORDERED: Iohexol 300* (CONTRAST) 10 ML SDV IV ONE (13:28)
[2020-01-19 15:23] VITALS: BP 121/59
== END 2020-01-19 15:23 | disposition home or self-care (01) ==
LOC: ED 11:21
DX: R10.9 Unspecified abdominal pain (principal); K59.00 Constipation, unspecified; Z79.899 Other long term (current) drug therapy; I10 Essential (primary) hypertension; I25.2 Old myocardial infarction; I25.10 Atherosclerotic heart disease of native coronary artery without angina pectoris; K21.9 Gastro-esophageal reflux disease without esophagitis; F17.210 Nicotine dependence, cigarettes, uncomplicated
CPT/HCPCS: 36415; 74177; 80053; 83690; 85025; 96374; 96375; 99282; J2270; J2405; J2765; Q9967